=== PATIENT | female | born 1965 | race Caucasian/White ===

== ENCOUNTER → 2020-05-10 12:44 | Outpatient (CLI) | payer OTHER, SELFPAY ==
[2020-05-10] MEDS: COVID-19 VACC #1, MRNA(MOD) 100 MCG/0.5 ML VIAL IM (12:49)
== END ==
PROVIDERS: Visit Provider Internal Medicine
DX: Z23 Encounter for immunization (principal)
CPT/HCPCS: 0011A; 91301

== ENCOUNTER → 2020-06-10 11:57 | Outpatient (CLI) | payer OTHER, SELFPAY ==
[2020-06-10] MEDS: COVID-19 VACC #2, MRNA(MOD) 100 MCG/0.5 ML VIAL IM (12:02)
== END ==
PROVIDERS: Visit Provider Internal Medicine
DX: Z23 Encounter for immunization (principal)
CPT/HCPCS: 0012A; 91301

== ENCOUNTER → 2020-09-29 08:11 | Outpatient (CLI) | payer OTHER, SELFPAY ==
[2020-09-29 09:05] LABS: Hematocrit 38.9 % (36-46); Hemoglobin 13.1 g/dL (12.0-16.0); Mean Corpuscular HGB Conc 33.6 % (30-36); Mean Corpuscular Hemoglobin 30.7 PG (26-34); Mean Corpuscular Volume 91.3 fL (80-100); Platelet Count 259 X10^3/uL (150-400); Red Blood Cell Count 4.26 X10^6/uL (4.0-5.2); Red Cell Distribution Width 13.3 % (11.6-14.8); White Blood Cell Count 5.3 X10^3/uL (4.5-11.0)
[2020-09-29 09:23] LABS: Alanine Aminotransferase 18 IU/L (<35); Albumin 4.2 g/dL (3.5-5.0); Albumin Globulin Ratio 1.4 (1.0-2.8); Alkaline Phosphatase 47 U/L (38-126); Aspartate Aminotransferase 23 IU/L (14-36); BUN Creatinine Ratio 25.8 (6-22); Bilirubin Total 0.3 mg/dL (0.2-1.3); Blood Urea Nitrogen 17 mg/dL (7-17); Calcium 9.7 mg/dL (8.4-10.2); Carbon Dioxide 28 mmol/L (22-32); Chloride 104 mmol/L (98-107); Cholesterol 251 mg/dL (140-199); Estimated Glomerular Filt Rate > 60.0 mL/min (>60); Glucose 95 mg/dL (70-100); HDL Cholesterol 51 mg/dL (40-60); HEMOLYSIS 18 (0-50); LDL Cholesterol Calculated 145 mg/dL (<100); Sodium 139 mmol/L (137-145); Total Protein 7.2 g/dL (6.3-8.2); Triglycerides 276 mg/dL (35-150)
[2020-09-29 09:51] LABS: TSH w/ Reflex to FT4 2.26 uIU/mL (0.47-4.68)
== END ==
PROVIDERS: PCP Nurse Practitioner Family; Referring Provider Nurse Practitioner Family; Visit Provider Nurse Practitioner Family
DX: Z00.00 Encounter for general adult medical examination without abnormal findings (principal); Z13.6 Encounter for screening for cardiovascular disorders; F32.9 Major depressive disorder, single episode, unspecified
CPT/HCPCS: 36415; 80053; 80061; 84443; 85027

== ENCOUNTER → 2020-10-12 08:54 | Outpatient (CLI) | payer OTHER, SELFPAY ==
--- NOTE | 2020-10-12 08:55 | DI.US.S_ITS ---
LIMITED ULTRASOUND OF RIGHT BREAST: 10/12/2020 CLINICAL: Right breast intermittant rash. Abnormal mammo LOQ. Comparison is made to exams dated: 10/12/2020 mammogram - [facility], 12/23/2019 mammogram, 04/30/2018 mammogram, and 10/05/2016 mammogram - outside location. Real-time ultrasound of the right breast 1 o'clock and 6-8 o'clock regions was performed in the areas of interest. No discrete cystic or solid mass lesion identified in the area of skin abnormality. No discrete cystic or solid mass lesion identified in the area of mammographic findings. IMPRESSION: NEGATIVE There is no sonographic evidence of malignancy. There is no abnormality seen in the right breast to correspond with the skin abnormality at 1 o'clock, however, clinical followup is recommended. There is no abnormality seen in the right breast to correspond with the mammography findings in the lower outer quadrant. Findings are compatible with fibroglandular tissue. A 1 year screening mammogram is recommended. This exam was interpreted at Station ID: [id number]. Electronically Signed By: Earnest eduardo/:10/12/2020 10:04:42 letter sent: Clinical Evaluation Ultrasound BI-RADS: 1 Negative
--- NOTE | 2020-10-12 08:55 | DI.MG.S_ITS ---
BILATERAL DIGITAL DIAGNOSTIC MAMMOGRAM 3D/2D: 10/12/2020 CLINICAL: Right breast rash. Comparison is made to exams dated: 12/23/2019 mammogram, 04/30/2018 mammogram, and 10/05/2016 mammogram - outside location. The tissue of both breasts is heterogeneously dense. This may lower the sensitivity of mammography. There is an irregular equal density global asymmetry with an indistinct margin in the right breast at 6 o'clock anterior depth. No other significant masses, calcifications, or other findings are seen in either breast. IMPRESSION: INCOMPLETE: NEEDS ADDITIONAL IMAGING EVALUATION The irregular equal density global asymmetry in the right breast likely represents fibroglandular tissue and is indeterminate. An ultrasound is recommended. There is no abnormality seen in the right breast to correspond with the skin lesion at 12 o'clock, however, ultrasound is recommended. Ultrasound will be performed immediately following the current exam. This exam was interpreted at Station ID: [id number]. NOTE: For mammograms, a report in lay terms will be sent to the patient. Approximately 15% of breast malignancies will not be visualized mammographically. In the management of a palpable breast mass, a negative mammogram must not discourage biopsy of a clinically suspicious lesion. Electronically Signed By: Earnest Erickson M.D. ddp/:10/12/2020 09:43:11 ACR BI-RADS Category 0: Incomplete [id number]
== END ==
PROVIDERS: PCP Nurse Practitioner Family; Referring Provider Nurse Practitioner Family; Visit Provider Nurse Practitioner Family
DX: R21 Rash and other nonspecific skin eruption (principal); N64.89 Other specified disorders of breast; R92.8 Other abnormal and inconclusive findings on diagnostic imaging of breast
CPT/HCPCS: 76642; 77066; G0279

== ENCOUNTER 2020-10-26 08:15 | Outpatient (RCR) | payer OTHER, SELFPAY ==
--- NOTE | 2020-08-10 10:40 | PT.OIE ---
Current Diagnoses Pain in right shoulder (08/10/20) Impingement syndrome of right shoulder (08/10/20) Past Medical History (Last Updated 07/18/20 @ 14:03 by Candida Mercer PA-C) Right shoulder pain Visit Care Team Role Provider Type Wilber Rodrigues MD Attending Provider Physician Referring Provider Specialty: Orthopedic Surgery Address: [address] [place] [address], [id number] Email: [email or web address] [facility] Initial Evaluation PT-OP-A Visit Information Start: 08/10/20 08:06 Freq: Status: Active Protocol: Document 08/10/20 10:00 HH (Rec: 08/10/20 10:40 [email or web address]) Out-Patient Physical Therapy Visit Information Visit Information Visit Type Initial Evaluation Visit Start Time 08:15 Visit Stop Time 09:05 Total Visit Minutes 50 Visit Number 1 Number of OFFICE BOOKKEEPER Visits 0 Evaluation Information Evaluation Date 08/10/20 Precautions Precautions NA PT-OP-B Current Condition Start: 08/10/20 08:06 Freq: Status: Active Protocol: Document 08/10/20 10:00 HH (Rec: 08/10/20 10:40 [email or web address]) Current Condition History of Current Condition Onset Date Februra Current Complaints R shoulder pain, R neck pain History of Current Condition Lin is a 54 yo healthy female (L hand dominant) here for her new onset of R shoulder pain and chronic R neck pain since [facility] and five years ago. Symptoms started in [facility] after she moved from [place] to [place]. She denies any known injury but pain started as nagging discomfort but it has been getting worse. She also started having tingling and numbness down to her R pinky and her pain worse with any shoulder movements especially abduction. She has difficulty opening a jar, holding a coffee and sleeping on her R side. Pt consulted orthopedist Dr. Rodrigues and he believes pt has bursitis vs RTC tendinitis vs adhesive capsulitis. Current Functional Impairments (Reported) Functional Limitations- ADL's pain with opening jar/ holding a weighted object pain with donning her bra Functional Limitations- Recreation/ unable to kayak, play golf d/t Hobbies pain PT-OP-C Subjective Start: 08/10/20 08:06 Freq: Status: Active Protocol: Document 08/10/20 10:00 HH (Rec: 08/10/20 10:40 [email or web address]) Patient Questionnaires Quick Dash- Upper Extremity Quick Dash UE Score 84 Quick Dash UE Impairment 80 to 99% Impaired (Score 80- 99) OP-PT Pain Assessment Location R shoulder Intensity 6 Scale Used Numeric (0 - 10) Description Aching Frequency Constant Pain Aggravating Factors Position,ADL's,Activity, Exercise,Lifting Pain Alleviating Factors Cold,Inactivity PT-OP-E Functional Tests Start: 08/10/20 08:06 Freq: Status: Active Protocol: Document 08/10/20 10:00 HH (Rec: 08/10/20 10:40 [email or web address]) Functional Tests Apley's Scratch Test Action 1- Left no pain Action 1- Right no pain Action 2- Left T2 Action 2- Right T2 with pain Action 3- Left T10 Action 3- Right T12 with pain PT-OP-F Manual Assessment Start: 08/10/20 08:06 Freq: Status: Active Protocol: Document 08/10/20 10:00 HH (Rec: 08/10/20 10:40 [email or web address]) Manual Assessments Soft Tissue Assessment Soft Tissue Mobility Assessment significant hypertonicity at proximal bicep and long head tendon tenderness to pressure at supraspinatus and infraspinatus hypertonicity at R subocciputal muscle group PT-OP-K Range of Motion Start: 08/10/20 08:06 Freq: Status: Active Protocol: Document 08/10/20 10:00 HH (Rec: 08/10/20 10:40 [email or web address]) Cervical Spine Range of Motion Cervical Spine Active Degrees Testing Position Sitting Rotation Left 85 Rotation Right 65 Comments pain with end range extension at T2-T4 pain with end range R rotation Shoulder Goniometric Range of Motion Shoulder Right Active Shoulder ROM WFL Yes Testing Position Standing Flexion 150 Abduction 105 External Rotation at 90 degrees 80 Abduction Internal Rotation 85 Left Active Shoulder ROM WFL Yes Testing Position Standing Flexion 150 Abduction 140 External Rotation at 90 degrees 95 Abduction Internal Rotation 85 PT-OP-L Special Tests Start: 08/10/20 08:06 Freq: Status: Active Protocol: Document 08/10/20 10:00 HH (Rec: 08/10/20 10:40 [email or web address]) Special Tests Shoulder Special Tests painful arc Test Results +ve R Comments abduction at 80 degrees Lift-Off Rotator Cuff Test Results +ve R Comments pain and weakness Empty Can Test Results -ve B External Rotation Lag Sign Test Results -ve B Comments no increase passive ER at R Drop Arm Rotator Cuff Test Results -ve B Comments pain to abduct AC Joint Compression Test Results -ve B Belly Press Test Results -ve B PT-OP-M Strength Start: 08/10/20 08:06 Freq: Status: Active Protocol: Document 08/10/20 10:00 HH (Rec: 08/10/20 10:40 [email or web address]) Shoulder Strength Shoulder Manual Muscle Testing Right Flexion 4 Good Extension 4 Good Abduction (C5) 3+ Fair+ Adduction 4+ Good+ External Rotation 4+ Good+ Internal Rotation 4+ Good+ Left Flexion 5 Normal Extension 5 Normal Abduction (C5) 5 Normal Adduction 5 Normal External Rotation 5 Normal Internal Rotation 5 Normal PT-OP-Q Treatments Start: 08/10/20 08:06 Freq: Status: Active Protocol: Document 08/10/20 10:00 (Rec: 08/10/20 10:40 [email or web address]) Therapeutic Exercises Standing Exercises tennis ball release Standing Exercise Name at RTC region Side right Comments for [facility] Manual Therapy Treatment Soft Tissue Mobilization RTC Body Location infraspinatus Mobilization Type Sustained Pressure,Trigger Point Release Intensity/Depth Moderate Body Position Supine bicep Body Location R bicep and long head tendon Mobilization Type Sustained Pressure,Trigger Point Release Intensity/Depth Moderate Body Position Supine Comments pain noted from proximal bicep to long head tendon Joint Mobilizations R GHJ Direction post glide Grade III Body Position Supine Comments pain relief noted./ Nerve Glides ulnar nerve glide Nerve ulnar Body Position Sitting Comments for [facility] PT-OP-T Assessment and Plan Start: 08/10/20 08:06 Freq: Status: Active Protocol: Document 08/10/20 10:00 HH (Rec: 08/10/20 10:40 [email or web address]) Physical Therapy Assessment Rehab Potential Rehabilitation Potential Excellent Evaluation Complexity Number of Personal Factors/Comorbidities 0 Number of Body Systems Impaired 1-2 Clinical Presentation at Evaluation Stable Impairments Impairments Activity Tolerance,Balance, Functional Activities, Functional Mobility,Gait,Pain, Posture,ROM,Soft Tissue Mobility,Strength,Tone, Transfers Goals Neck pain and headache Impairment pt has constant tension headache and neck pain Short Term Goal (STG) pt will have tension headahce on R side no more than 4 times a week to improve her overall focus and attention STG Duration 4 weeks Skilled Nursing Goal (LTG) pt will have tension headahce on R side no more than 2 times a week to improve her overall work productivity and focus. LTG Duration 8 weeks return to activities Academic Affairs Manager Goal (LTG) pt will be able to participate kayaking, playing golf and other activitiies involves shoulder movements without difficulty LTG Duration 8 weeks ROM Impairment limited R shoulder ROM Short Term Goal (STG) pt will regain her R shoulder full AROM with pain no more than 2/10 STG Duration 4 weeks Skilled Nursing Goal (LTG) pt will have full R shoulder ROM without pain and neurological signs on her ulnar nerve. LTG Duration 8 weeks quickdash Impairment pt scores 84 on quickdash Short Term Goal (STG) Pt will improve overall her R shoulder mobility and strength to score <50 on quickdash STG Duration 4 weeks Skilled Nursing Goal (LTG) Pt will improve overall her R shoulder mobility and strength to score <30 on quickdash, therefore, she can perform daily tasks like opening jars, holding weighted object without difficulty. LTG Duration 8 weeks Assessment Summary Assessment Lin is a 54 yo L hand dominant healthy female here for her R shoulder pain and chronic R neck pain. 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 She also has tension headahce which is triggered by her hypertonic suboccipital muscle group and R SCM, along with limited R cervical rotation and extension. Her shoulder AROM did improve immediately after manual therapy and so did her pain. Pt will benefit from skilled therapy to improve her cervical and R shoulder ROM and strength by manual therapy , cervical and shoulder stabilization and overall strengthening. This will allows her to fully return to her ADL and sports without difficulty. Physical Therapy Plan Frequency and Duration Frequency of Treatment 2x/Week Duration of Treatment 8 weeks Plan of Care Start Date 08/09/20 Plan of Care End Date 10/09/20 Therapeutic Interventions Therapeutic Interventions Home Exercise Program,Joint Mobilizations,Manual Therapy, Neuromuscular Re-education, Patient/Caregiver Education, Self-Care/Home Management,Soft Tissue Mobilization,Taping, Therapeutic Activities, Therapeutic Exercises Modalities Biofeedback,Cold Pack/Ice Massage,Electric Stimulation, Hot Packs,Infrared Therapy, Iontophoresis,Paraffin Bath, Traction- Mechanical, Ultrasound Next Visit Focus/Plan Next Note Type Treatment Note Next Visit Plan manual @ bicep tendon, RTC followed by ROM ex manula @ suboccipitals, SCM followed by stretching at levator scap and R trap check scapula movements.
--- NOTE | 2020-08-10 10:41 | PT.OPPOC ---
Physical, Occupational & Speech Therapy At [facility] Current Diagnoses Pain in right shoulder (08/10/20) Impingement syndrome of right shoulder (08/10/20) Visit Care Team Role Provider Type Wilber Rodrigues MD Attending Provider Physician Referring Provider Specialty: Orthopedic Surgery Address: [address] [place] [address], [id number] Email: [email or web address] Plan Of Care PT-OP-T Assessment and Plan Start: 08/10/20 08:06 Freq: Status: Active Protocol: Document 08/10/20 10:00 (Rec: 08/10/20 10:40 [email or web address]) Physical Therapy Assessment Rehab Potential Rehabilitation Potential Excellent Evaluation Complexity Number of Personal Factors/Comorbidities 0 Number of Body Systems Impaired 1-2 Clinical Presentation at Evaluation Stable Impairments Impairments Activity Tolerance,Balance, Functional Activities, Functional Mobility,Gait,Pain, Posture,ROM,Soft Tissue Mobility,Strength,Tone, Transfers Goals Neck pain and headache Impairment pt has constant tension headache and neck pain Short Term Goal (STG) pt will have tension headahce on R side no more than 4 times a week to improve her overall focus and attention STG Duration 4 weeks Senior Accountant Analyst Goal (LTG) pt will have tension headahce on R side no more than 2 times a week to improve her overall work productivity and focus. LTG Duration 8 weeks return to activities Fdc Goal (LTG) pt will be able to participate kayaking, playing golf and other activitiies involves shoulder movements without difficulty LTG Duration 8 weeks ROM Impairment limited R shoulder ROM Short Term Goal (STG) pt will regain her R shoulder full AROM with pain no more than 2/10 STG Duration 4 weeks Fdc Goal (LTG) pt will have full R shoulder ROM without pain and neurological signs on her ulnar nerve. LTG Duration 8 weeks quickdash Impairment pt scores 84 on quickdash Short Term Goal (STG) Pt will improve overall her R shoulder mobility and strength to score <50 on quickdash STG Duration 4 weeks Fdc Goal (LTG) Pt will improve overall her R shoulder mobility and strength to score <30 on quickdash, therefore, she can perform daily tasks like opening jars, holding weighted object without difficulty. LTG Duration 8 weeks Assessment Summary Assessment Lin is a 54 yo L hand dominant healthy female here for her R shoulder pain and chronic R neck pain. Upon assessment, pt presents long head of bicep tendonitis and RTC tedonitis, along with decreased ulnar nerve flexbility which primarily limits her R shoulder movement and strength. She also has tension headahce which is triggered by her hypertonic suboccipital muscle group and R SCM, along with limited R cervical rotation and extension. Her shoulder AROM did improve immediately after manual therapy and so did her pain. Pt will benefit from skilled therapy to improve her cervical and R shoulder ROM and strength by manual therapy , cervical and shoulder stabilization and overall strengthening. This will allows her to fully return to her ADL and sports without difficulty. Physical Therapy Plan Frequency and Duration Frequency of Treatment 2x/Week Duration of Treatment 8 weeks Plan of Care Start Date 08/09/20 Plan of Care End Date 10/09/20 Therapeutic Interventions Therapeutic Interventions Home Exercise Program,Joint Mobilizations,Manual Therapy, Neuromuscular Re-education, Patient/Caregiver Education, Self-Care/Home Management,Soft Tissue Mobilization,Taping, Therapeutic Activities, Therapeutic Exercises Modalities Biofeedback,Cold Pack/Ice Massage,Electric Stimulation, Hot Packs,Infrared Therapy, Iontophoresis,Paraffin Bath, Traction- Mechanical, Ultrasound Next Visit Focus/Plan Next Note Type Treatment Note Next Visit Plan manual @ bicep tendon, RTC followed by ROM ex manula @ suboccipitals, SCM followed by stretching at levator scap and R trap check scapula movements. Plan of Care Dates Plan of Care Start Date 08/09/20 Plan of Care End Date 10/09/20 Electronically Signed by: Otis Shaver PT 08/10/20 1043 Please Sign and Return: I have reviewed this Plan of Care and certify that the skilled therapy services above are required to meet the patient?s needs. Physician Signature Date Printed Name and Credentials Clinical Instructor Signature Printed Name and Credentials
--- NOTE | 2020-08-15 09:05 | PT.OTN ---
Current Diagnoses Pain in right shoulder (08/15/20) Impingement syndrome of right shoulder (08/15/20) Physical Therapy Treatment Note PT-OP-A Visit Information Start: 08/10/20 08:06 Freq: Status: Active Protocol: Document 08/15/20 08:13 HH (Rec: 08/15/20 09:04 [id number]) Out-Patient Physical Therapy Visit Information Visit Information Visit Type Treatment Note Visit Start Time 08:17 Visit Stop Time 09:05 Total Visit Minutes 43 Visit Number 2 Number of BIG DATA SOFTWARE ENGINEER Visits 0 PT-OP-B Current Condition Start: 08/10/20 08:06 Freq: Status: Active Protocol: Document 08/10/20 10:00 HH (Rec: 08/10/20 10:40 [email or web address]) Current Condition History of Current Condition Onset Date Februra Current Complaints R shoulder pain, R neck pain History of Current Condition Lin is a 54 yo healthy female (L hand dominant) here for her new onset of R shoulder pain and chronic R neck pain since [facility] and five years ago. Symptoms started in [facility] after she moved from [place] to [place]. She denies any known injury but pain started as nagging discomfort but it has been getting worse. She also started having tingling and numbness down to her R pinky and her pain worse with any shoulder movements especially abduction. She has difficulty opening a jar, holding a coffee and sleeping on her R side. Pt consulted orthopedist Dr. Rodrigues and he believes pt has bursitis vs RTC tendinitis vs adhesive capsulitis. Current Functional Impairments (Reported) Functional Limitations- ADL's pain with opening jar/ holding a weighted object pain with donning her bra Functional Limitations- Recreation/ unable to kayak, play golf d/t Hobbies pain PT-OP-C Subjective Start: 08/10/20 08:06 Freq: Status: Active Protocol: Document 08/15/20 08:13 HH (Rec: 08/15/20 09:04 [id number]) OP-PT Subjective Patient Comments Patient Comments I felt really good after last session but it lasted a day only. My tingling sensation in picky seems to be better: Patient Reported Progress Improving PT-OP-E Functional Tests Start: 08/10/20 08:06 Freq: Status: Active Protocol: Document 08/10/20 10:00 HH (Rec: 08/10/20 10:40 [email or web address]) Functional Tests Apley's Scratch Test Action 1- Left no pain Action 1- Right no pain Action 2- Left T2 Action 2- Right T2 with pain Action 3- Left T10 Action 3- Right T12 with pain PT-OP-F Manual Assessment Start: 08/10/20 08:06 Freq: Status: Active Protocol: Document 08/10/20 10:00 HH (Rec: 08/10/20 10:40 [email or web address]) Manual Assessments Soft Tissue Assessment Soft Tissue Mobility Assessment significant hypertonicity at proximal bicep and long head tendon tenderness to pressure at supraspinatus and infraspinatus hypertonicity at R subocciputal muscle group PT-OP-K Range of Motion Start: 08/10/20 08:06 Freq: Status: Active Protocol: Document 08/10/20 10:00 HH (Rec: 08/10/20 10:40 [email or web address]) Cervical Spine Range of Motion Cervical Spine Active Degrees Testing Position Sitting Rotation Left 85 Rotation Right 65 Comments pain with end range extension at T2-T4 pain with end range R rotation Shoulder Goniometric Range of Motion Shoulder Right Active Shoulder ROM WFL Yes Testing Position Standing Flexion 150 Abduction 105 External Rotation at 90 degrees 80 Abduction Internal Rotation 85 Left Active Shoulder ROM WFL Yes Testing Position Standing Flexion 150 Abduction 140 External Rotation at 90 degrees 95 Abduction Internal Rotation 85 PT-OP-L Special Tests Start: 08/10/20 08:06 Freq: Status: Active Protocol: Document 08/10/20 10:00 HH (Rec: 08/10/20 10:40 [email or web address]) Special Tests Shoulder Special Tests painful arc Test Results +ve R Comments abduction at 80 degrees Lift-Off Rotator Cuff Test Results +ve R Comments pain and weakness Empty Can Test Results -ve B External Rotation Lag Sign Test Results -ve B Comments no increase passive ER at R Drop Arm Rotator Cuff Test Results -ve B Comments pain to abduct AC Joint Compression Test Results -ve B Belly Press Test Results -ve B PT-OP-M Strength Start: 08/10/20 08:06 Freq: Status: Active Protocol: Document 08/10/20 10:00 HH (Rec: 08/10/20 10:40 [email or web address]) Shoulder Strength Shoulder Manual Muscle Testing Right Flexion 4 Good Extension 4 Good Abduction (C5) 3+ Fair+ Adduction 4+ Good+ External Rotation 4+ Good+ Internal Rotation 4+ Good+ Left Flexion 5 Normal Extension 5 Normal Abduction (C5) 5 Normal Adduction 5 Normal External Rotation 5 Normal Internal Rotation 5 Normal PT-OP-Q Treatments Start: 08/10/20 08:06 Freq: Status: Active Protocol: Document 08/15/20 08:13 (Rec: 08/15/20 09:04 [id number]) Therapeutic Exercises Supine Exercises tennis ball release Supine Exercise Name on suboccipitals Side bilateral Comments for HEP Sidelying Exercises open book Side bilateral Comments for HEP, stretching sensation at bicep, slight pain noted Sitting Exercises levator stretch Comments for HEP Standing Exercises shoulder ER Side right Equipment Used red band Reps/Minutes 8 x2 Comments not ready d/t pain. Manual Therapy Treatment Soft Tissue Mobilization suboccipitals Mobilization Type Sustained Pressure,Trigger Point Release Intensity/Depth Moderate Body Position Supine Comments + levator scap pecs Mobilization Type Sustained Pressure,Trigger Point Release Intensity/Depth Moderate Body Position Supine RTC Body Location infraspinatus Mobilization Type Sustained Pressure,Trigger Point Release Intensity/Depth Moderate Body Position Supine Comments improved tonicity noted. bicep Body Location R bicep and long head tendon Mobilization Type Sustained Pressure,Trigger Point Release Intensity/Depth Moderate Body Position Supine Comments pain noted from proximal bicep to long head tendon Joint Mobilizations R GHJ Direction post glide Grade III Body Position Supine Comments with passisve ER and IR. pain relief noted. Nerve Glides ulnar nerve glide Nerve ulnar Body Position Sitting Comments for HEP PT-OP-T Assessment and Plan Start: 08/10/20 08:06 Freq: Status: Active Protocol: Document 08/15/20 08:13 (Rec: 08/15/20 09:04 [id number]) Physical Therapy Assessment Goals Neck pain and headache Impairment pt has constant tension headache and neck pain Short Term Goal (STG) pt will have tension headahce on R side no more than 4 times a week to improve her overall focus and attention STG Duration 4 weeks Step Finisher Goal (LTG) pt will have tension headahce on R side no more than 2 times a week to improve her overall work productivity and focus. LTG Duration 8 weeks return to activities Nursing Home Goal (LTG) pt will be able to participate kayaking, playing golf and other activitiies involves shoulder movements without difficulty LTG Duration 8 weeks ROM Impairment limited R shoulder ROM Short Term Goal (STG) pt will regain her R shoulder full AROM with pain no more than 2/10 STG Duration 4 weeks Step Finisher Goal (LTG) pt will have full R shoulder ROM without pain and neurological signs on her ulnar nerve. LTG Duration 8 weeks quickdash Impairment pt scores 84 on quickdash Short Term Goal (STG) Pt will improve overall her R shoulder mobility and strength to score <50 on quickdash STG Duration 4 weeks Step Finisher Goal (LTG) Pt will improve overall her R shoulder mobility and strength to score <30 on quickdash, therefore, she can perform daily tasks like opening jars, holding weighted object without difficulty. LTG Duration 8 weeks Assessment Summary Assessment Pt has significant tonicity at R pecs and biceps but improved after STM. Added open book, tennis ball release at suboccipital and levator stretch. Pt is not ready for RTC strengthening exercises d/ t significant pain. Physical Therapy Plan Frequency and Duration Frequency of Treatment 2x/Week Duration of Treatment 8 weeks Plan of Care Start Date 08/09/20 Plan of Care End Date 10/09/20 Therapeutic Interventions Therapeutic Interventions Home Exercise Program,Joint Mobilizations,Manual Therapy, Neuromuscular Re-education, Patient/Caregiver Education, Self-Care/Home Management,Soft Tissue Mobilization,Taping, Therapeutic Activities, Therapeutic Exercises Modalities Biofeedback,Cold Pack/Ice Massage,Electric Stimulation, Hot Packs,Infrared Therapy, Iontophoresis,Paraffin Bath, Traction- Mechanical, Ultrasound Next Visit Focus/Plan Next Note Type Treatment Note Next Visit Plan manual @ bicep tendon, RTC followed by ROM ex manula @ suboccipitals, SCM followed by stretching at levator scap and R trap check scapula movements.
--- NOTE | 2020-08-17 09:07 | PT.OTN ---
Current Diagnoses Pain in right shoulder (08/17/20) Impingement syndrome of right shoulder (08/17/20) Physical Therapy Treatment Note PT-OP-A Visit Information Start: 08/10/20 08:06 Freq: Status: Active Protocol: Document 08/17/20 08:13 HH (Rec: 08/17/20 09:07 [id number]) Out-Patient Physical Therapy Visit Information Visit Information Visit Type Treatment Note Visit Start Time 08:15 Visit Stop Time 09:00 Total Visit Minutes 45 Visit Number 3 Number of CLUTCH REBUILDER Visits 0 PT-OP-B Current Condition Start: 08/10/20 08:06 Freq: Status: Active Protocol: Document 08/10/20 10:00 HH (Rec: 08/10/20 10:40 [email or web address]) Current Condition History of Current Condition Onset Date Februray Current Complaints R shoulder pain, R neck pain History of Current Condition Lin is a 54 yo healthy female (L hand dominant) here for her new onset of R shoulder pain and chronic R neck pain since [facility] and five years ago. Symptoms started in [facility] after she moved from [place] to [place]. She denies any known injury but pain started as nagging discomfort but it has been getting worse. She also started having tingling and numbness down to her R pinky and her pain worse with any shoulder movements especially abduction. She has difficulty opening a jar, holding a coffee and sleeping on her R side. Pt consulted orthopedist Dr. Rodrigues and he believes pt has bursitis vs RTC tendinitis vs adhesive capsulitis. Current Functional Impairments (Reported) Functional Limitations- ADL's pain with opening jar/ holding a weighted object pain with donning her bra Functional Limitations- Recreation/ unable to kayak, play golf d/t Hobbies pain PT-OP-C Subjective Start: 08/10/20 08:06 Freq: Status: Active Protocol: Document 08/17/20 08:13 HH (Rec: 08/17/20 09:07 [id number]) OP-PT Subjective Patient Comments Patient Comments My shoulder feels good and able to move more. However, i did get a headache last night after i did the neck stretch Patient Reported Progress Improving PT-OP-E Functional Tests Start: 08/10/20 08:06 Freq: Status: Active Protocol: Document 08/10/20 10:00 HH (Rec: 08/10/20 10:40 [email or web address]) Functional Tests Apley's Scratch Test Action 1- Left no pain Action 1- Right no pain Action 2- Left T2 Action 2- Right T2 with pain Action 3- Left T10 Action 3- Right T12 with pain PT-OP-F Manual Assessment Start: 08/10/20 08:06 Freq: Status: Active Protocol: Document 08/10/20 10:00 HH (Rec: 08/10/20 10:40 [email or web address]) Manual Assessments Soft Tissue Assessment Soft Tissue Mobility Assessment significant hypertonicity at proximal bicep and long head tendon tenderness to pressure at supraspinatus and infraspinatus hypertonicity at R subocciputal muscle group PT-OP-K Range of Motion Start: 08/10/20 08:06 Freq: Status: Active Protocol: Document 08/10/20 10:00 HH (Rec: 08/10/20 10:40 [email or web address]) Cervical Spine Range of Motion Cervical Spine Active Degrees Testing Position Sitting Rotation Left 85 Rotation Right 65 Comments pain with end range extension at T2-T4 pain with end range R rotation Shoulder Goniometric Range of Motion Shoulder Right Active Shoulder ROM WFL Yes Testing Position Standing Flexion 150 Abduction 105 External Rotation at 90 degrees 80 Abduction Internal Rotation 85 Left Active Shoulder ROM WFL Yes Testing Position Standing Flexion 150 Abduction 140 External Rotation at 90 degrees 95 Abduction Internal Rotation 85 PT-OP-L Special Tests Start: 08/10/20 08:06 Freq: Status: Active Protocol: Document 08/10/20 10:00 HH (Rec: 08/10/20 10:40 [email or web address]) Special Tests Shoulder Special Tests painful arc Test Results +ve R Comments abduction at 80 degrees Lift-Off Rotator Cuff Test Results +ve R Comments pain and weakness Empty Can Test Results -ve B External Rotation Lag Sign Test Results -ve B Comments no increase passive ER at R Drop Arm Rotator Cuff Test Results -ve B Comments pain to abduct AC Joint Compression Test Results -ve B Belly Press Test Results -ve B PT-OP-M Strength Start: 08/10/20 08:06 Freq: Status: Active Protocol: Document 08/10/20 10:00 HH (Rec: 08/10/20 10:40 [email or web address]) Shoulder Strength Shoulder Manual Muscle Testing Right Flexion 4 Good Extension 4 Good Abduction (C5) 3+ Fair+ Adduction 4+ Good+ External Rotation 4+ Good+ Internal Rotation 4+ Good+ Left Flexion 5 Normal Extension 5 Normal Abduction (C5) 5 Normal Adduction 5 Normal External Rotation 5 Normal Internal Rotation 5 Normal PT-OP-Q Treatments Start: 08/10/20 08:06 Freq: Status: Active Protocol: Document 08/17/20 08:13 (Rec: 08/17/20 09:07 [id number]) Cardio Equipment Upper Body Ergometer (UBE) Duration (Minutes) 4 RPM 60 Other 30 sec and change direction Therapeutic Exercises Sidelying Exercises shoulder ER Side bilateral Reps/Minutes 8 x 2 Comments slight discomfort at top of shoulder open book Side bilateral Reps/Minutes 8 x2 Sitting Exercises levator stretch Comments for HEP Standing Exercises OH giorgio Standing Exercise Name flexion and abduction Side bilateral Reps/Minutes 2 mins each direction scap retraction Side bilateral Reps/Minutes 8 x 2 Comments cues on retraction Manual Therapy Treatment Soft Tissue Mobilization suboccipitals Mobilization Type Sustained Pressure,Trigger Point Release Intensity/Depth Moderate Body Position Supine Comments + levator scap pecs Mobilization Type Sustained Pressure,Trigger Point Release Intensity/Depth Moderate Body Position Supine RTC Body Location infraspinatus Mobilization Type Sustained Pressure,Trigger Point Release Intensity/Depth Moderate Body Position Supine Comments improved tonicity noted. bicep Body Location R bicep and long head tendon Mobilization Type Sustained Pressure,Trigger Point Release Intensity/Depth Moderate Body Position Supine Comments pain noted from proximal bicep to long head tendon Joint Mobilizations R GHJ Direction post glide Grade III Body Position Supine Comments with passisve ER and IR. pain relief noted. Nerve Glides ulnar nerve glide Nerve ulnar Body Position Sitting Comments for HEP PT-OP-T Assessment and Plan Start: 08/10/20 08:06 Freq: Status: Active Protocol: Document 08/17/20 08:13 (Rec: 08/17/20 09:07 [id number]) Physical Therapy Assessment Goals Neck pain and headache Impairment pt has constant tension headache and neck pain Short Term Goal (STG) pt will have tension headahce on R side no more than 4 times a week to improve her overall focus and attention STG Duration 4 weeks [employer] Goal (LTG) pt will have tension headahce on R side no more than 2 times a week to improve her overall work productivity and focus. LTG Duration 8 weeks return to activities [employer] Goal (LTG) pt will be able to participate kayaking, playing golf and other activitiies involves shoulder movements without difficulty LTG Duration 8 weeks ROM Impairment limited R shoulder ROM Short Term Goal (STG) pt will regain her R shoulder full AROM with pain no more than 2/10 STG Duration 4 weeks [employer] Goal (LTG) pt will have full R shoulder ROM without pain and neurological signs on her ulnar nerve. LTG Duration 8 weeks quickdash Impairment pt scores 84 on quickdash Short Term Goal (STG) Pt will improve overall her R shoulder mobility and strength to score <50 on quickdash STG Duration 4 weeks [facility] Goal (LTG) Pt will improve overall her R shoulder mobility and strength to score <30 on quickdash, therefore, she can perform daily tasks like opening jars, holding weighted object without difficulty. LTG Duration 8 weeks Assessment Summary Assessment Pt shows improved shoulder mobility with less pain. Added SL shoulder ER to HEP. Will assess her response next visit . Physical Therapy Plan Frequency and Duration Frequency of Treatment 2x/Week Duration of Treatment 8 weeks Plan of Care Start Date 08/09/20 Plan of Care End Date 10/09/20 Therapeutic Interventions Therapeutic Interventions Home Exercise Program,Joint Mobilizations,Manual Therapy, Neuromuscular Re-education, Patient/Caregiver Education, Self-Care/Home Management,Soft Tissue Mobilization,Taping, Therapeutic Activities, Therapeutic Exercises Modalities Biofeedback,Cold Pack/Ice Massage,Electric Stimulation, Hot Packs,Infrared Therapy, Iontophoresis,Paraffin Bath, Traction- Mechanical, Ultrasound Next Visit Focus/Plan Next Note Type Treatment Note Next Visit Plan manual @ bicep tendon, RTC followed by ROM ex manula @ suboccipitals, SCM followed by stretching at levator scap and R trap check scapula movements.
--- NOTE | 2020-08-24 09:43 | PT.OTN ---
Current Diagnoses Pain in right shoulder (08/24/20) Impingement syndrome of right shoulder (08/24/20) Physical Therapy Treatment Note PT-OP-A Visit Information Start: 08/10/20 08:06 Freq: Status: Active Protocol: Document 08/24/20 08:13 HH (Rec: 08/24/20 09:00 [id number]) Out-Patient Physical Therapy Visit Information Visit Information Visit Type Treatment Note Visit Start Time 08:16 Visit Stop Time 09:00 Total Visit Minutes 44 Visit Number 4 Number of SUPERINTENDENT SYSTEM OPERATION Visits 0 PT-OP-B Current Condition Start: 08/10/20 08:06 Freq: Status: Active Protocol: Document 08/10/20 10:00 HH (Rec: 08/10/20 10:40 HH [email or web address]) Current Condition History of Current Condition Onset Date Februray Current Complaints R shoulder pain, R neck pain History of Current Condition Lin is a 54 yo healthy female (L hand dominant) here for her new onset of R shoulder pain and chronic R neck pain since [facility] and five years ago. Symptoms started in [facility] after she moved from [place] to [place]. She denies any known injury but pain started as nagging discomfort but it has been getting worse. She also started having tingling and numbness down to her R pinky and her pain worse with any shoulder movements especially abduction. She has difficulty opening a jar, holding a coffee and sleeping on her R side. Pt consulted orthopedist Dr. Rodrigues and he believes pt has bursitis vs RTC tendinitis vs adhesive capsulitis. Current Functional Impairments (Reported) Functional Limitations- ADL's pain with opening jar/ holding a weighted object pain with donning her bra Functional Limitations- Recreation/ unable to kayak, play golf d/t Hobbies pain PT-OP-C Subjective Start: 08/10/20 08:06 Freq: Status: Active Protocol: Document 08/24/20 08:13 HH (Rec: 08/24/20 09:00 [id number]) OP-PT Subjective Patient Comments Patient Comments My arm is doing very good so far. i didnt have the headache for the entire week so im very glad. I also dont have any tingling and numbness anymore. Patient Reported Progress Improving PT-OP-E Functional Tests Start: 08/10/20 08:06 Freq: Status: Active Protocol: Document 08/10/20 10:00 HH (Rec: 08/10/20 10:40 [email or web address]) Functional Tests Apley's Scratch Test Action 1- Left no pain Action 1- Right no pain Action 2- Left T2 Action 2- Right T2 with pain Action 3- Left T10 Action 3- Right T12 with pain PT-OP-F Manual Assessment Start: 08/10/20 08:06 Freq: Status: Active Protocol: Document 08/10/20 10:00 HH (Rec: 08/10/20 10:40 [email or web address]) Manual Assessments Soft Tissue Assessment Soft Tissue Mobility Assessment significant hypertonicity at proximal bicep and long head tendon tenderness to pressure at supraspinatus and infraspinatus hypertonicity at R subocciputal muscle group PT-OP-K Range of Motion Start: 08/10/20 08:06 Freq: Status: Active Protocol: Document 08/10/20 10:00 HH (Rec: 08/10/20 10:40 [email or web address]) Cervical Spine Range of Motion Cervical Spine Active Degrees Testing Position Sitting Rotation Left 85 Rotation Right 65 Comments pain with end range extension at T2-T4 pain with end range R rotation Shoulder Goniometric Range of Motion Shoulder Right Active Shoulder ROM WFL Yes Testing Position Standing Flexion 150 Abduction 105 External Rotation at 90 degrees 80 Abduction Internal Rotation 85 Left Active Shoulder ROM WFL Yes Testing Position Standing Flexion 150 Abduction 140 External Rotation at 90 degrees 95 Abduction Internal Rotation 85 PT-OP-L Special Tests Start: 08/10/20 08:06 Freq: Status: Active Protocol: Document 08/10/20 10:00 HH (Rec: 08/10/20 10:40 [email or web address]) Special Tests Shoulder Special Tests painful arc Test Results +ve R Comments abduction at 80 degrees Lift-Off Rotator Cuff Test Results +ve R Comments pain and weakness Empty Can Test Results -ve B External Rotation Lag Sign Test Results -ve B Comments no increase passive ER at R Drop Arm Rotator Cuff Test Results -ve B Comments pain to abduct AC Joint Compression Test Results -ve B Belly Press Test Results -ve B PT-OP-M Strength Start: 08/10/20 08:06 Freq: Status: Active Protocol: Document 08/10/20 10:00 HH (Rec: 08/10/20 10:40 [email or web address]) Shoulder Strength Shoulder Manual Muscle Testing Right Flexion 4 Good Extension 4 Good Abduction (C5) 3+ Fair+ Adduction 4+ Good+ External Rotation 4+ Good+ Internal Rotation 4+ Good+ Left Flexion 5 Normal Extension 5 Normal Abduction (C5) 5 Normal Adduction 5 Normal External Rotation 5 Normal Internal Rotation 5 Normal PT-OP-Q Treatments Start: 08/10/20 08:06 Freq: Status: Active Protocol: Document 08/24/20 08:13 (Rec: 08/24/20 09:00 [id number]) Cardio Equipment Upper Body Ergometer (UBE) Duration (Minutes) 4 RPM 60 Other 30 sec and change direction Therapeutic Exercises Sidelying Exercises horizontal abduction Equipment Used 1lb DB Reps/Minutes 8 reps x 2 shoulder ER Side bilateral Reps/Minutes 8 x 2 Comments cues on retracted shoulder open book Side bilateral Reps/Minutes 8 x2 Standing Exercises OH giorgio Standing Exercise Name flexion and abduction Side bilateral Reps/Minutes 2 mins each direction scap retraction Side bilateral Equipment Used level 1 band Reps/Minutes 8 x 2 Comments cues on retraction, for HEP Manual Therapy Treatment Soft Tissue Mobilization pecs Mobilization Type Sustained Pressure,Trigger Point Release Intensity/Depth Moderate Body Position Supine RTC Body Location infraspinatus Mobilization Type Sustained Pressure,Trigger Point Release Intensity/Depth Moderate Body Position Supine Comments improved tonicity noted. bicep Body Location R bicep and long head tendon Mobilization Type Sustained Pressure,Trigger Point Release Intensity/Depth Moderate Body Position Supine Comments pain noted from proximal bicep to long head tendon PT-OP-T Assessment and Plan Start: 08/10/20 08:06 Freq: Status: Active Protocol: Document 08/24/20 08:13 (Rec: 08/24/20 09:00 [id number]) Physical Therapy Assessment Goals Neck pain and headache Impairment pt has constant tension headache and neck pain Short Term Goal (STG) pt will have tension headahce on R side no more than 4 times a week to improve her overall focus and attention STG Duration 4 weeks [employer] Goal (LTG) pt will have tension headahce on R side no more than 2 times a week to improve her overall work productivity and focus. LTG Duration 8 weeks return to activities [facility] Goal (LTG) pt will be able to participate kayaking, playing golf and other activitiies involves shoulder movements without difficulty LTG Duration 8 weeks ROM Impairment limited R shoulder ROM Short Term Goal (STG) pt will regain her R shoulder full AROM with pain no more than 2/10 STG Duration 4 weeks [facility] Goal (LTG) pt will have full R shoulder ROM without pain and neurological signs on her ulnar nerve. LTG Duration 8 weeks quickdash Impairment pt scores 84 on quickdash Short Term Goal (STG) Pt will improve overall her R shoulder mobility and strength to score <50 on quickdash STG Duration 4 weeks [employer] Goal (LTG) Pt will improve overall her R shoulder mobility and strength to score <30 on quickdash, therefore, she can perform daily tasks like opening jars, holding weighted object without difficulty. LTG Duration 8 weeks Assessment Summary Assessment Pt has full range of motion today with minimal discomfort. She doesnt have tingling numbness sensation and tension heandache for the past 7 days as well. Progress to scap stabilization and strengthening today and pt johnson well. Physical Therapy Plan Frequency and Duration Frequency of Treatment 2x/Week Duration of Treatment 8 weeks Plan of Care Start Date 08/09/20 Plan of Care End Date 10/09/20 Therapeutic Interventions Therapeutic Interventions Home Exercise Program,Joint Mobilizations,Manual Therapy, Neuromuscular Re-education, Patient/Caregiver Education, Self-Care/Home Management,Soft Tissue Mobilization,Taping, Therapeutic Activities, Therapeutic Exercises Modalities Biofeedback,Cold Pack/Ice Massage,Electric Stimulation, Hot Packs,Infrared Therapy, Iontophoresis,Paraffin Bath, Traction- Mechanical, Ultrasound Next Visit Focus/Plan Next Note Type Treatment Note Next Visit Plan manual @ bicep tendon, RTC followed by ROM ex manula @ suboccipitals, SCM followed by stretching at levator scap and R trap check scapula movements.
--- NOTE | 2020-08-31 09:02 | PT.OTN ---
Current Diagnoses Pain in right shoulder (08/31/20) Impingement syndrome of right shoulder (08/31/20) Physical Therapy Treatment Note PT-OP-A Visit Information Start: 08/10/20 08:06 Freq: Status: Active Protocol: Document 08/31/20 08:14 HH (Rec: 08/31/20 09:01 [id number]) Out-Patient Physical Therapy Visit Information Visit Information Visit Type Treatment Note Visit Start Time 08:17 Visit Stop Time 09:00 Total Visit Minutes 43 Visit Number 5 Number of FAN BLADE ALIGNER Visits 0 PT-OP-B Current Condition Start: 08/10/20 08:06 Freq: Status: Active Protocol: Document 08/10/20 10:00 HH (Rec: 08/10/20 10:40 [email or web address]) Current Condition History of Current Condition Onset Date Februray Current Complaints R shoulder pain, R neck pain History of Current Condition Lin is a 54 yo healthy female (L hand dominant) here for her new onset of R shoulder pain and chronic R neck pain since [facility] and five years ago. Symptoms started in [facility] after she moved from [place] to [place]. She denies any known injury but pain started as nagging discomfort but it has been getting worse. She also started having tingling and numbness down to her R pinky and her pain worse with any shoulder movements especially abduction. She has difficulty opening a jar, holding a coffee and sleeping on her R side. Pt consulted orthopedist Dr. Rodrigues and he believes pt has bursitis vs RTC tendinitis vs adhesive capsulitis. Current Functional Impairments (Reported) Functional Limitations- ADL's pain with opening jar/ holding a weighted object pain with donning her bra Functional Limitations- Recreation/ unable to kayak, play golf d/t Hobbies pain PT-OP-C Subjective Start: 08/10/20 08:06 Freq: Status: Active Protocol: Document 08/31/20 08:14 HH (Rec: 08/31/20 09:01 [id number]) OP-PT Subjective Patient Comments Patient Comments I went to see and he is pleased with my progress . I still have tenderness at my front of R shoulder but All my tingling and numbness has been gone. I did have a headache 3 days ago but it then went away. Patient Reported Progress Improving PT-OP-E Functional Tests Start: 08/10/20 08:06 Freq: Status: Active Protocol: Document 08/10/20 10:00 HH (Rec: 08/10/20 10:40 [email or web address]) Functional Tests Apley's Scratch Test Action 1- Left no pain Action 1- Right no pain Action 2- Left T2 Action 2- Right T2 with pain Action 3- Left T10 Action 3- Right T12 with pain PT-OP-F Manual Assessment Start: 08/10/20 08:06 Freq: Status: Active Protocol: Document 08/10/20 10:00 HH (Rec: 08/10/20 10:40 [email or web address]) Manual Assessments Soft Tissue Assessment Soft Tissue Mobility Assessment significant hypertonicity at proximal bicep and long head tendon tenderness to pressure at supraspinatus and infraspinatus hypertonicity at R subocciputal muscle group PT-OP-K Range of Motion Start: 08/10/20 08:06 Freq: Status: Active Protocol: Document 08/10/20 10:00 HH (Rec: 08/10/20 10:40 [email or web address]) Cervical Spine Range of Motion Cervical Spine Active Degrees Testing Position Sitting Rotation Left 85 Rotation Right 65 Comments pain with end range extension at T2-T4 pain with end range R rotation Shoulder Goniometric Range of Motion Shoulder Right Active Shoulder ROM WFL Yes Testing Position Standing Flexion 150 Abduction 105 External Rotation at 90 degrees 80 Abduction Internal Rotation 85 Left Active Shoulder ROM WFL Yes Testing Position Standing Flexion 150 Abduction 140 External Rotation at 90 degrees 95 Abduction Internal Rotation 85 PT-OP-L Special Tests Start: 08/10/20 08:06 Freq: Status: Active Protocol: Document 08/10/20 10:00 HH (Rec: 08/10/20 10:40 [email or web address]) Special Tests Shoulder Special Tests painful arc Test Results +ve R Comments abduction at 80 degrees Lift-Off Rotator Cuff Test Results +ve R Comments pain and weakness Empty Can Test Results -ve B External Rotation Lag Sign Test Results -ve B Comments no increase passive ER at R Drop Arm Rotator Cuff Test Results -ve B Comments pain to abduct AC Joint Compression Test Results -ve B Belly Press Test Results -ve B PT-OP-M Strength Start: 08/10/20 08:06 Freq: Status: Active Protocol: Document 08/10/20 10:00 HH (Rec: 08/10/20 10:40 [email or web address]) Shoulder Strength Shoulder Manual Muscle Testing Right Flexion 4 Good Extension 4 Good Abduction (C5) 3+ Fair+ Adduction 4+ Good+ External Rotation 4+ Good+ Internal Rotation 4+ Good+ Left Flexion 5 Normal Extension 5 Normal Abduction (C5) 5 Normal Adduction 5 Normal External Rotation 5 Normal Internal Rotation 5 Normal PT-OP-Q Treatments Start: 08/10/20 08:06 Freq: Status: Active Protocol: Document 08/31/20 08:14 (Rec: 08/31/20 09:01 [id number]) Therapeutic Exercises Supine Exercises snow julian Equipment Used foam roller Reps/Minutes 4 mins Comments chin tuck and pec stretch Sitting Exercises shoulder ER Equipment Used level 1 Reps/Minutes 10 x 2 Comments for HEP Standing Exercises scap retraction Side bilateral Equipment Used level 1 band Reps/Minutes 8 x 2 Comments cues on retraction, for HEP Manual Therapy Treatment Soft Tissue Mobilization suboccipitals Mobilization Type Sustained Pressure,Trigger Point Release Intensity/Depth Moderate Body Position Supine Comments + levator scap pecs Mobilization Type Sustained Pressure,Trigger Point Release Intensity/Depth Moderate Body Position Supine Joint Mobilizations C/S Joint traction Grade III Body Position Supine R GHJ Direction post glide Grade III Body Position Supine Comments with passisve ER and IR. pain relief noted. PT-OP-T Assessment and Plan Start: 08/10/20 08:06 Freq: Status: Active Protocol: Document 08/31/20 08:14 (Rec: 08/31/20 09:01 [id number]) Physical Therapy Assessment Goals Neck pain and headache Impairment pt has constant tension headache and neck pain Short Term Goal (STG) pt will have tension headahce on R side no more than 4 times a week to improve her overall focus and attention STG Duration 4 weeks Shelter Goal (LTG) pt will have tension headahce on R side no more than 2 times a week to improve her overall work productivity and focus. LTG Duration 8 weeks return to activities Shelter Goal (LTG) pt will be able to participate kayaking, playing golf and other activitiies involves shoulder movements without difficulty LTG Duration 8 weeks ROM Impairment limited R shoulder ROM Short Term Goal (STG) pt will regain her R shoulder full AROM with pain no more than 2/10 STG Duration 4 weeks Chipper Feeder Goal (LTG) pt will have full R shoulder ROM without pain and neurological signs on her ulnar nerve. LTG Duration 8 weeks quickdash Impairment pt scores 84 on quickdash Short Term Goal (STG) Pt will improve overall her R shoulder mobility and strength to score <50 on quickdash STG Duration 4 weeks Shelter Goal (LTG) Pt will improve overall her R shoulder mobility and strength to score <30 on quickdash, therefore, she can perform daily tasks like opening jars, holding weighted object without difficulty. LTG Duration 8 weeks Assessment Summary Assessment pt has been sleeping well, along with only 1 headache over the past 2 weeks. She still has discomfort at bicipital groove with diffiuclty reaching behind her back. Added snow julian on foam roller and shoulder ER to HEP. Physical Therapy Plan Frequency and Duration Frequency of Treatment 2x/Week Duration of Treatment 8 weeks Plan of Care Start Date 08/09/20 Plan of Care End Date 10/09/20 Therapeutic Interventions Therapeutic Interventions Home Exercise Program,Joint Mobilizations,Manual Therapy, Neuromuscular Re-education, Patient/Caregiver Education, Self-Care/Home Management,Soft Tissue Mobilization,Taping, Therapeutic Activities, Therapeutic Exercises Modalities Biofeedback,Cold Pack/Ice Massage,Electric Stimulation, Hot Packs,Infrared Therapy, Iontophoresis,Paraffin Bath, Traction- Mechanical, Ultrasound Next Visit Focus/Plan Next Note Type Treatment Note Next Visit Plan manual @ bicep tendon, RTC followed by ROM ex manula @ suboccipitals, SCM followed by stretching at levator scap and R trap check scapula movements.
--- NOTE | 2020-09-05 12:50 | PT.OTN ---
Current Diagnoses Pain in right shoulder (09/05/20) Impingement syndrome of right shoulder (09/05/20) Physical Therapy Treatment Note PT-OP-A Visit Information Start: 08/10/20 08:06 Freq: Status: Active Protocol: Document 09/05/20 11:12 HH (Rec: 09/05/20 11:17 [id number]) Out-Patient Physical Therapy Visit Information Visit Information Visit Type Treatment Note Visit Start Time 11:15 Visit Stop Time 12:00 Total Visit Minutes 45 Visit Number 6 Number of DIABETES TERRITORY MANAGER Visits 0 PT-OP-B Current Condition Start: 08/10/20 08:06 Freq: Status: Active Protocol: Document 08/10/20 10:00 HH (Rec: 08/10/20 10:40 HH [email or web address]) Current Condition History of Current Condition Onset Date Februray Current Complaints R shoulder pain, R neck pain History of Current Condition Lin is a 54 yo healthy female (L hand dominant) here for her new onset of R shoulder pain and chronic R neck pain since [facility] and five years ago. Symptoms started in [facility] after she moved from [place] to [place]. She denies any known injury but pain started as nagging discomfort but it has been getting worse. She also started having tingling and numbness down to her R pinky and her pain worse with any shoulder movements especially abduction. She has difficulty opening a jar, holding a coffee and sleeping on her R side. Pt consulted orthopedist Dr. Rodrigues and he believes pt has bursitis vs RTC tendinitis vs adhesive capsulitis. Current Functional Impairments (Reported) Functional Limitations- ADL's pain with opening jar/ holding a weighted object pain with donning her bra Functional Limitations- Recreation/ unable to kayak, play golf d/t Hobbies pain PT-OP-C Subjective Start: 08/10/20 08:06 Freq: Status: Active Protocol: Document 09/05/20 11:12 HH (Rec: 09/05/20 11:17 HH [id number]) OP-PT Subjective Patient Comments Patient Comments Today is a bad day because i played golf yesterday and i only played 7 holes. The snow julian and external rotation exercies have been hurting me. Patient Reported Progress Worse PT-OP-E Functional Tests Start: 08/10/20 08:06 Freq: Status: Active Protocol: Document 08/10/20 10:00 HH (Rec: 08/10/20 10:40 [email or web address]) Functional Tests Apley's Scratch Test Action 1- Left no pain Action 1- Right no pain Action 2- Left T2 Action 2- Right T2 with pain Action 3- Left T10 Action 3- Right T12 with pain PT-OP-F Manual Assessment Start: 08/10/20 08:06 Freq: Status: Active Protocol: Document 08/10/20 10:00 HH (Rec: 08/10/20 10:40 [email or web address]) Manual Assessments Soft Tissue Assessment Soft Tissue Mobility Assessment significant hypertonicity at proximal bicep and long head tendon tenderness to pressure at supraspinatus and infraspinatus hypertonicity at R subocciputal muscle group PT-OP-K Range of Motion Start: 08/10/20 08:06 Freq: Status: Active Protocol: Document 08/10/20 10:00 HH (Rec: 08/10/20 10:40 [email or web address]) Cervical Spine Range of Motion Cervical Spine Active Degrees Testing Position Sitting Rotation Left 85 Rotation Right 65 Comments pain with end range extension at T2-T4 pain with end range R rotation Shoulder Goniometric Range of Motion Shoulder Right Active Shoulder ROM WFL Yes Testing Position Standing Flexion 150 Abduction 105 External Rotation at 90 degrees 80 Abduction Internal Rotation 85 Left Active Shoulder ROM WFL Yes Testing Position Standing Flexion 150 Abduction 140 External Rotation at 90 degrees 95 Abduction Internal Rotation 85 PT-OP-L Special Tests Start: 08/10/20 08:06 Freq: Status: Active Protocol: Document 08/10/20 10:00 HH (Rec: 08/10/20 10:40 [email or web address]) Special Tests Shoulder Special Tests painful arc Test Results +ve R Comments abduction at 80 degrees Lift-Off Rotator Cuff Test Results +ve R Comments pain and weakness Empty Can Test Results -ve B External Rotation Lag Sign Test Results -ve B Comments no increase passive ER at R Drop Arm Rotator Cuff Test Results -ve B Comments pain to abduct AC Joint Compression Test Results -ve B Belly Press Test Results -ve B PT-OP-M Strength Start: 08/10/20 08:06 Freq: Status: Active Protocol: Document 08/10/20 10:00 HH (Rec: 08/10/20 10:40 HH [email or web address]) Shoulder Strength Shoulder Manual Muscle Testing Right Flexion 4 Good Extension 4 Good Abduction (C5) 3+ Fair+ Adduction 4+ Good+ External Rotation 4+ Good+ Internal Rotation 4+ Good+ Left Flexion 5 Normal Extension 5 Normal Abduction (C5) 5 Normal Adduction 5 Normal External Rotation 5 Normal Internal Rotation 5 Normal PT-OP-Q Treatments Start: 08/10/20 08:06 Freq: Status: Active Protocol: Document 09/05/20 11:12 (Rec: 09/05/20 12:50 HH [email or web address]) Therapeutic Exercises Supine Exercises snow julian Comments pain reported today Sidelying Exercises horizontal abduction Comments pain reported today shoulder ER Comments pain reported today open book Side bilateral Reps/Minutes 8 x2 Comments cues to engage trunk rotation Standing Exercises OH giorgio Standing Exercise Name flexion and abduction Side bilateral Reps/Minutes 2 mins each direction Comments educated pt to acquire one for HEP scap retraction Side bilateral Equipment Used level 1 band Reps/Minutes 8 x 2 Comments cues on retraction, Manual Therapy Treatment Soft Tissue Mobilization pecs Mobilization Type Sustained Pressure,Trigger Point Release Intensity/Depth Moderate Body Position Supine Comments increased tonicity noted. RTC Body Location infraspinatus Mobilization Type Sustained Pressure,Trigger Point Release Intensity/Depth Moderate Body Position Supine Comments increased tonicity noted. bicep Body Location R bicep and long head tendon Mobilization Type Sustained Pressure,Trigger Point Release Intensity/Depth Moderate Body Position Supine Comments pain noted from proximal bicep to long head tendon increased tonicity noted. PT-OP-T Assessment and Plan Start: 08/10/20 08:06 Freq: Status: Active Protocol: Document 09/05/20 11:12 (Rec: 09/05/20 12:50 [email or web address]) Physical Therapy Assessment Goals Neck pain and headache Impairment pt has constant tension headache and neck pain Short Term Goal (STG) pt will have tension headahce on R side no more than 4 times a week to improve her overall focus and attention STG Duration 4 weeks Epic Cadence Analyst Goal (LTG) pt will have tension headahce on R side no more than 2 times a week to improve her overall work productivity and focus. LTG Duration 8 weeks return to activities Epic Cadence Analyst Goal (LTG) pt will be able to participate kayaking, playing golf and other activitiies involves shoulder movements without difficulty LTG Duration 8 weeks ROM Impairment limited R shoulder ROM Short Term Goal (STG) pt will regain her R shoulder full AROM with pain no more than 2/10 STG Duration 4 weeks Senior Care Goal (LTG) pt will have full R shoulder ROM without pain and neurological signs on her ulnar nerve. LTG Duration 8 weeks quickdash Impairment pt scores 84 on quickdash Short Term Goal (STG) Pt will improve overall her R shoulder mobility and strength to score <50 on quickdash STG Duration 4 weeks Senior Care Goal (LTG) Pt will improve overall her R shoulder mobility and strength to score <30 on quickdash, therefore, she can perform daily tasks like opening jars, holding weighted object without difficulty. LTG Duration 8 weeks Assessment Summary Assessment pt hasnt had any neck pain and headache since last visit but flare up at R shoulder after she played golf yesterday. Increased pain and tonicity noted today and educated pt to scale back her HEP and rest for 2 more days. Recommended her to do open book and scap retraction, along with ice for pain management. Physical Therapy Plan Frequency and Duration Frequency of Treatment 2x/Week Duration of Treatment 8 weeks Plan of Care Start Date 08/09/20 Plan of Care End Date 10/09/20 Therapeutic Interventions Therapeutic Interventions Home Exercise Program,Joint Mobilizations,Manual Therapy, Neuromuscular Re-education, Patient/Caregiver Education, Self-Care/Home Management,Soft Tissue Mobilization,Taping, Therapeutic Activities, Therapeutic Exercises Modalities Biofeedback,Cold Pack/Ice Massage,Electric Stimulation, Hot Packs,Infrared Therapy, Iontophoresis,Paraffin Bath, Traction- Mechanical, Ultrasound Next Visit Focus/Plan Next Note Type Treatment Note Next Visit Plan manual @ bicep tendon, RTC followed by ROM ex manula @ suboccipitals, SCM followed by stretching at levator scap and R trap check scapula movements.
--- NOTE | 2020-09-07 09:03 | PT.OTN ---
Current Diagnoses Pain in right shoulder (09/07/20) Impingement syndrome of right shoulder (09/07/20) Physical Therapy Treatment Note PT-OP-A Visit Information Start: 08/10/20 08:06 Freq: Status: Active Protocol: Document 09/07/20 08:14 HH (Rec: 09/07/20 09:03 [id number]) Out-Patient Physical Therapy Visit Information Visit Information Visit Type Treatment Note Visit Start Time 08:15 Visit Stop Time 09:00 Total Visit Minutes 45 Visit Number 7 Number of S[employer] DEVELOPER Visits 0 PT-OP-B Current Condition Start: 08/10/20 08:06 Freq: Status: Active Protocol: Document 08/10/20 10:00 HH (Rec: 08/10/20 10:40 HH [email or web address]) Current Condition History of Current Condition Onset Date Februray Current Complaints R shoulder pain, R neck pain History of Current Condition Lin is a 54 yo healthy female (L hand dominant) here for her new onset of R shoulder pain and chronic R neck pain since [facility] and five years ago. Symptoms started in [facility] after she moved from [place] to [place]. She denies any known injury but pain started as nagging discomfort but it has been getting worse. She also started having tingling and numbness down to her R pinky and her pain worse with any shoulder movements especially abduction. She has difficulty opening a jar, holding a coffee and sleeping on her R side. Pt consulted orthopedist Dr. Rodrigues and he believes pt has bursitis vs RTC tendinitis vs adhesive capsulitis. Current Functional Impairments (Reported) Functional Limitations- ADL's pain with opening jar/ holding a weighted object pain with donning her bra Functional Limitations- Recreation/ unable to kayak, play golf d/t Hobbies pain PT-OP-C Subjective Start: 08/10/20 08:06 Freq: Status: Active Protocol: Document 09/07/20 08:14 HH (Rec: 09/07/20 09:03 [id number]) OP-PT Subjective Patient Comments Patient Comments my shoulder feels great after last time but it aches again yesterday. Jacy been having the tension headache only once a week which is great Patient Reported Progress Improving PT-OP-E Functional Tests Start: 08/10/20 08:06 Freq: Status: Active Protocol: Document 08/10/20 10:00 HH (Rec: 08/10/20 10:40 [email or web address]) Functional Tests Apley's Scratch Test Action 1- Left no pain Action 1- Right no pain Action 2- Left T2 Action 2- Right T2 with pain Action 3- Left T10 Action 3- Right T12 with pain PT-OP-F Manual Assessment Start: 08/10/20 08:06 Freq: Status: Active Protocol: Document 08/10/20 10:00 HH (Rec: 08/10/20 10:40 [email or web address]) Manual Assessments Soft Tissue Assessment Soft Tissue Mobility Assessment significant hypertonicity at proximal bicep and long head tendon tenderness to pressure at supraspinatus and infraspinatus hypertonicity at R subocciputal muscle group PT-OP-K Range of Motion Start: 08/10/20 08:06 Freq: Status: Active Protocol: Document 08/10/20 10:00 HH (Rec: 08/10/20 10:40 [email or web address]) Cervical Spine Range of Motion Cervical Spine Active Degrees Testing Position Sitting Rotation Left 85 Rotation Right 65 Comments pain with end range extension at T2-T4 pain with end range R rotation Shoulder Goniometric Range of Motion Shoulder Right Active Shoulder ROM WFL Yes Testing Position Standing Flexion 150 Abduction 105 External Rotation at 90 degrees 80 Abduction Internal Rotation 85 Left Active Shoulder ROM WFL Yes Testing Position Standing Flexion 150 Abduction 140 External Rotation at 90 degrees 95 Abduction Internal Rotation 85 PT-OP-L Special Tests Start: 08/10/20 08:06 Freq: Status: Active Protocol: Document 08/10/20 10:00 HH (Rec: 08/10/20 10:40 [email or web address]) Special Tests Shoulder Special Tests painful arc Test Results +ve R Comments abduction at 80 degrees Lift-Off Rotator Cuff Test Results +ve R Comments pain and weakness Empty Can Test Results -ve B External Rotation Lag Sign Test Results -ve B Comments no increase passive ER at R Drop Arm Rotator Cuff Test Results -ve B Comments pain to abduct AC Joint Compression Test Results -ve B Belly Press Test Results -ve B PT-OP-M Strength Start: 08/10/20 08:06 Freq: Status: Active Protocol: Document 08/10/20 10:00 HH (Rec: 08/10/20 10:40 [email or web address]) Shoulder Strength Shoulder Manual Muscle Testing Right Flexion 4 Good Extension 4 Good Abduction (C5) 3+ Fair+ Adduction 4+ Good+ External Rotation 4+ Good+ Internal Rotation 4+ Good+ Left Flexion 5 Normal Extension 5 Normal Abduction (C5) 5 Normal Adduction 5 Normal External Rotation 5 Normal Internal Rotation 5 Normal PT-OP-Q Treatments Start: 08/10/20 08:06 Freq: Status: Active Protocol: Document 09/07/20 08:14 (Rec: 09/07/20 09:03 [id number]) Therapeutic Exercises Sidelying Exercises horizontal abduction Reps/Minutes 8 x2 Comments no pain today, cues with scap retraction shoulder ER Equipment Used towel under elbow Reps/Minutes 8x2 Comments no pain today, cues with scpa retraction open book Side bilateral Reps/Minutes 8 x2 Comments cues to engage trunk rotation Standing Exercises OH giorgio Standing Exercise Name flexion and abduction Side bilateral Reps/Minutes 2 mins each direction Comments educated pt to acquire one for HEP scap retraction Side bilateral Equipment Used level 1 band Reps/Minutes 8 x 2 Comments cues on retraction, Manual Therapy Treatment Soft Tissue Mobilization pecs Mobilization Type Sustained Pressure,Trigger Point Release Intensity/Depth Moderate Body Position Supine Comments increased tonicity noted. RTC Body Location infraspinatus and lats Mobilization Type Sustained Pressure,Trigger Point Release Intensity/Depth Moderate Body Position Supine Comments increased tonicity noted. bicep Body Location R bicep and long head tendon Mobilization Type Sustained Pressure,Trigger Point Release Intensity/Depth Moderate Body Position Supine Comments pain noted from proximal bicep to long head tendon increased tonicity noted. Joint Mobilizations R GHJ Direction post glide Grade III Body Position Supine Comments with passisve ER and IR. pain relief noted. PT-OP-T Assessment and Plan Start: 08/10/20 08:06 Freq: Status: Active Protocol: Document 09/07/20 08:14 (Rec: 09/07/20 09:03 [id number]) Physical Therapy Assessment Goals Neck pain and headache Impairment pt has constant tension headache and neck pain Short Term Goal (STG) pt will have tension headahce on R side no more than 4 times a week to improve her overall focus and attention STG Duration 4 weeks Intermediate Goal (LTG) pt will have tension headahce on R side no more than 2 times a week to improve her overall work productivity and focus. LTG Duration 8 weeks return to activities Intermediate Goal (LTG) pt will be able to participate kayaking, playing golf and other activitiies involves shoulder movements without difficulty LTG Duration 8 weeks ROM Impairment limited R shoulder ROM Short Term Goal (STG) pt will regain her R shoulder full AROM with pain no more than 2/10 STG Duration 4 weeks Intermediate Goal (LTG) pt will have full R shoulder ROM without pain and neurological signs on her ulnar nerve. LTG Duration 8 weeks quickdash Impairment pt scores 84 on quickdash Short Term Goal (STG) Pt will improve overall her R shoulder mobility and strength to score <50 on quickdash STG Duration 4 weeks Plant Controller Goal (LTG) Pt will improve overall her R shoulder mobility and strength to score <30 on quickdash, therefore, she can perform daily tasks like opening jars, holding weighted object without difficulty. LTG Duration 8 weeks Assessment Summary Assessment Pt has less pain and irritation today. Her lats shows hypertonicity but relieved after manual therapy. Recommended pt to focus on open book , OH giorgio and scap retraction for recovery and pain management. Physical Therapy Plan Frequency and Duration Frequency of Treatment 2x/Week Duration of Treatment 8 weeks Plan of Care Start Date 08/09/20 Plan of Care End Date 10/09/20 Therapeutic Interventions Therapeutic Interventions Home Exercise Program,Joint Mobilizations,Manual Therapy, Neuromuscular Re-education, Patient/Caregiver Education, Self-Care/Home Management,Soft Tissue Mobilization,Taping, Therapeutic Activities, Therapeutic Exercises Modalities Biofeedback,Cold Pack/Ice Massage,Electric Stimulation, Hot Packs,Infrared Therapy, Iontophoresis,Paraffin Bath, Traction- Mechanical, Ultrasound Next Visit Focus/Plan Next Note Type Treatment Note Next Visit Plan manual @ bicep tendon, RTC followed by ROM ex manula @ suboccipitals, SCM followed by stretching at levator scap and R trap check scapula movements.
--- NOTE | 2020-09-14 09:16 | PT.OTN ---
Current Diagnoses Pain in right shoulder (09/14/20) Impingement syndrome of right shoulder (09/14/20) Physical Therapy Treatment Note PT-OP-A Visit Information Start: 08/10/20 08:06 Freq: Status: Active Protocol: Document 09/14/20 08:12 HH (Rec: 09/14/20 09:16 [id number]) Out-Patient Physical Therapy Visit Information Visit Information Visit Type Treatment Note Visit Start Time 08:15 Visit Stop Time 09:08 Total Visit Minutes 53 Visit Number 8 Number of RN REVIEW Visits 0 PT-OP-B Current Condition Start: 08/10/20 08:06 Freq: Status: Active Protocol: Document 08/10/20 10:00 HH (Rec: 08/10/20 10:40 [email or web address]) Current Condition History of Current Condition Onset Date Februray Current Complaints R shoulder pain, R neck pain History of Current Condition Lin is a 54 yo healthy female (L hand dominant) here for her new onset of R shoulder pain and chronic R neck pain since [facility] and five years ago. Symptoms started in [facility] after she moved from [place] to [place]. She denies any known injury but pain started as nagging discomfort but it has been getting worse. She also started having tingling and numbness down to her R pinky and her pain worse with any shoulder movements especially abduction. She has difficulty opening a jar, holding a coffee and sleeping on her R side. Pt consulted orthopedist Dr. Rodrigues and he believes pt has bursitis vs RTC tendinitis vs adhesive capsulitis. Current Functional Impairments (Reported) Functional Limitations- ADL's pain with opening jar/ holding a weighted object pain with donning her bra Functional Limitations- Recreation/ unable to kayak, play golf d/t Hobbies pain PT-OP-C Subjective Start: 08/10/20 08:06 Freq: Status: Active Protocol: Document 09/14/20 08:12 HH (Rec: 09/14/20 09:16 [id number]) OP-PT Subjective Patient Comments Patient Comments My shoulder was good after last time until i played golf on Saturday. I did finish all 9 holes but it was killing me after. I had a headache once but it got better immediately after the neck stretch. Patient Reported Progress Improving PT-OP-E Functional Tests Start: 08/10/20 08:06 Freq: Status: Active Protocol: Document 08/10/20 10:00 HH (Rec: 08/10/20 10:40 [email or web address]) Functional Tests Apley's Scratch Test Action 1- Left no pain Action 1- Right no pain Action 2- Left T2 Action 2- Right T2 with pain Action 3- Left T10 Action 3- Right T12 with pain PT-OP-F Manual Assessment Start: 08/10/20 08:06 Freq: Status: Active Protocol: Document 08/10/20 10:00 HH (Rec: 08/10/20 10:40 [email or web address]) Manual Assessments Soft Tissue Assessment Soft Tissue Mobility Assessment significant hypertonicity at proximal bicep and long head tendon tenderness to pressure at supraspinatus and infraspinatus hypertonicity at R subocciputal muscle group PT-OP-K Range of Motion Start: 08/10/20 08:06 Freq: Status: Active Protocol: Document 08/10/20 10:00 HH (Rec: 08/10/20 10:40 [email or web address]) Cervical Spine Range of Motion Cervical Spine Active Degrees Testing Position Sitting Rotation Left 85 Rotation Right 65 Comments pain with end range extension at T2-T4 pain with end range R rotation Shoulder Goniometric Range of Motion Shoulder Right Active Shoulder ROM WFL Yes Testing Position Standing Flexion 150 Abduction 105 External Rotation at 90 degrees 80 Abduction Internal Rotation 85 Left Active Shoulder ROM WFL Yes Testing Position Standing Flexion 150 Abduction 140 External Rotation at 90 degrees 95 Abduction Internal Rotation 85 PT-OP-L Special Tests Start: 08/10/20 08:06 Freq: Status: Active Protocol: Document 08/10/20 10:00 HH (Rec: 08/10/20 10:40 [email or web address]) Special Tests Shoulder Special Tests painful arc Test Results +ve R Comments abduction at 80 degrees Lift-Off Rotator Cuff Test Results +ve R Comments pain and weakness Empty Can Test Results -ve B External Rotation Lag Sign Test Results -ve B Comments no increase passive ER at R Drop Arm Rotator Cuff Test Results -ve B Comments pain to abduct AC Joint Compression Test Results -ve B Belly Press Test Results -ve B PT-OP-M Strength Start: 08/10/20 08:06 Freq: Status: Active Protocol: Document 08/10/20 10:00 HH (Rec: 08/10/20 10:40 [email or web address]) Shoulder Strength Shoulder Manual Muscle Testing Right Flexion 4 Good Extension 4 Good Abduction (C5) 3+ Fair+ Adduction 4+ Good+ External Rotation 4+ Good+ Internal Rotation 4+ Good+ Left Flexion 5 Normal Extension 5 Normal Abduction (C5) 5 Normal Adduction 5 Normal External Rotation 5 Normal Internal Rotation 5 Normal PT-OP-Q Treatments Start: 08/10/20 08:06 Freq: Status: Active Protocol: Document 09/14/20 08:12 (Rec: 09/14/20 09:16 [id number]) Cardio Equipment Upper Body Ergometer (UBE) Duration (Minutes) 4 RPM 60 Other 30 sec and change direction Therapeutic Exercises Supine Exercises shoulder punch Equipment Used PVC Reps/Minutes 15x1 Sidelying Exercises shoulder ER Equipment Used towel under elbow Reps/Minutes 8x2 Comments slight pain today open book Side bilateral Reps/Minutes 8 x2 Comments cues to engage trunk rotation Standing Exercises shoulder extension Side bilateral Equipment Used level 1 Comments pain at R anterior shoulder OH giorgio Standing Exercise Name flexion and abduction Side bilateral Reps/Minutes 2 mins each direction scap retraction Side bilateral Equipment Used level 1 band Reps/Minutes 8 x 2 Comments cues on retraction, shoulder ER Side right Equipment Used red band Reps/Minutes 8 x2 Comments not ready d/t pain. Manual Therapy Treatment Soft Tissue Mobilization lats Mobilization Type Myofascial Release Intensity/Depth Moderate Body Position Sidelying Comments significant tonicity noted pecs Mobilization Type Sustained Pressure,Trigger Point Release Intensity/Depth Moderate Body Position Supine Comments increased tonicity noted. Joint Mobilizations R GHJ Direction post glide Grade III Body Position Supine Comments with passisve ER and IR. Full ER noted but pain with IR PT-OP-T Assessment and Plan Start: 08/10/20 08:06 Freq: Status: Active Protocol: Document 09/14/20 08:12 (Rec: 09/14/20 09:16 [id number]) Physical Therapy Assessment Goals Neck pain and headache Impairment pt has constant tension headache and neck pain Short Term Goal (STG) pt will have tension headahce on R side no more than 4 times a week to improve her overall focus and attention STG Duration 4 weeks Forest Fire Warden Goal (LTG) pt will have tension headahce on R side no more than 2 times a week to improve her overall work productivity and focus. LTG Duration 8 weeks return to activities Residential Goal (LTG) pt will be able to participate kayaking, playing golf and other activitiies involves shoulder movements without difficulty LTG Duration 8 weeks ROM Impairment limited R shoulder ROM Short Term Goal (STG) pt will regain her R shoulder full AROM with pain no more than 2/10 STG Duration 4 weeks Residential Goal (LTG) pt will have full R shoulder ROM without pain and neurological signs on her ulnar nerve. LTG Duration 8 weeks quickdash Impairment pt scores 84 on quickdash Short Term Goal (STG) Pt will improve overall her R shoulder mobility and strength to score <50 on quickdash STG Duration 4 weeks Residential Goal (LTG) Pt will improve overall her R shoulder mobility and strength to score <30 on quickdash, therefore, she can perform daily tasks like opening jars, holding weighted object without difficulty. LTG Duration 8 weeks Assessment Summary Assessment Pt has irritation after playing golf on saturday. Spent time educating her to put playing golf on hold for load management. Tx focused on AROM , scap stabilization, and RTC strengthening today and noticed her R shoulder is still quite irritated from saturday. Physical Therapy Plan Frequency and Duration Frequency of Treatment 2x/Week Duration of Treatment 8 weeks Plan of Care Start Date 08/09/20 Plan of Care End Date 10/09/20 Therapeutic Interventions Therapeutic Interventions Home Exercise Program,Joint Mobilizations,Manual Therapy, Neuromuscular Re-education, Patient/Caregiver Education, Self-Care/Home Management,Soft Tissue Mobilization,Taping, Therapeutic Activities, Therapeutic Exercises Modalities Biofeedback,Cold Pack/Ice Massage,Electric Stimulation, Hot Packs,Infrared Therapy, Iontophoresis,Paraffin Bath, Traction- Mechanical, Ultrasound Next Visit Focus/Plan Next Note Type Treatment Note Next Visit Plan manual @ bicep tendon, RTC followed by ROM ex manula @ suboccipitals, SCM followed by stretching at levator scap and R trap check scapula movements.
--- NOTE | 2020-09-16 09:02 | PT.OTN ---
Current Diagnoses Pain in right shoulder (09/16/20) Impingement syndrome of right shoulder (09/16/20) Physical Therapy Treatment Note PT-OP-A Visit Information Start: 08/10/20 08:06 Freq: Status: Active Protocol: Document 09/16/20 08:12 HH (Rec: 09/16/20 09:02 [id number]) Out-Patient Physical Therapy Visit Information Visit Information Visit Type Treatment Note Visit Start Time 08:17 Visit Stop Time 09:00 Total Visit Minutes 43 Visit Number 9 Number of CONSULTING DATABASE ADMINISTRATOR Visits 0 PT-OP-B Current Condition Start: 08/10/20 08:06 Freq: Status: Active Protocol: Document 08/10/20 10:00 HH (Rec: 08/10/20 10:40 [email or web address]) Current Condition History of Current Condition Onset Date Februray Current Complaints R shoulder pain, R neck pain History of Current Condition Lin is a 54 yo healthy female (L hand dominant) here for her new onset of R shoulder pain and chronic R neck pain since [facility] and five years ago. Symptoms started in [facility] after she moved from [place] to [place]. She denies any known injury but pain started as nagging discomfort but it has been getting worse. She also started having tingling and numbness down to her R pinky and her pain worse with any shoulder movements especially abduction. She has difficulty opening a jar, holding a coffee and sleeping on her R side. Pt consulted orthopedist Dr. Rodrigues and he believes pt has bursitis vs RTC tendinitis vs adhesive capsulitis. Current Functional Impairments (Reported) Functional Limitations- ADL's pain with opening jar/ holding a weighted object pain with donning her bra Functional Limitations- Recreation/ unable to kayak, play golf d/t Hobbies pain PT-OP-C Subjective Start: 08/10/20 08:06 Freq: Status: Active Protocol: Document 09/16/20 08:12 HH (Rec: 09/16/20 09:02 [id number]) OP-PT Subjective Patient Comments Patient Comments Its been calming down a bit now. PT-OP-E Functional Tests Start: 08/10/20 08:06 Freq: Status: Active Protocol: Document 08/10/20 10:00 HH (Rec: 08/10/20 10:40 [email or web address]) Functional Tests Apley's Scratch Test Action 1- Left no pain Action 1- Right no pain Action 2- Left T2 Action 2- Right T2 with pain Action 3- Left T10 Action 3- Right T12 with pain PT-OP-F Manual Assessment Start: 08/10/20 08:06 Freq: Status: Active Protocol: Document 08/10/20 10:00 HH (Rec: 08/10/20 10:40 [email or web address]) Manual Assessments Soft Tissue Assessment Soft Tissue Mobility Assessment significant hypertonicity at proximal bicep and long head tendon tenderness to pressure at supraspinatus and infraspinatus hypertonicity at R subocciputal muscle group PT-OP-K Range of Motion Start: 08/10/20 08:06 Freq: Status: Active Protocol: Document 08/10/20 10:00 HH (Rec: 08/10/20 10:40 [email or web address]) Cervical Spine Range of Motion Cervical Spine Active Degrees Testing Position Sitting Rotation Left 85 Rotation Right 65 Comments pain with end range extension at T2-T4 pain with end range R rotation Shoulder Goniometric Range of Motion Shoulder Right Active Shoulder ROM WFL Yes Testing Position Standing Flexion 150 Abduction 105 External Rotation at 90 degrees 80 Abduction Internal Rotation 85 Left Active Shoulder ROM WFL Yes Testing Position Standing Flexion 150 Abduction 140 External Rotation at 90 degrees 95 Abduction Internal Rotation 85 PT-OP-L Special Tests Start: 08/10/20 08:06 Freq: Status: Active Protocol: Document 08/10/20 10:00 HH (Rec: 08/10/20 10:40 [email or web address]) Special Tests Shoulder Special Tests painful arc Test Results +ve R Comments abduction at 80 degrees Lift-Off Rotator Cuff Test Results +ve R Comments pain and weakness Empty Can Test Results -ve B External Rotation Lag Sign Test Results -ve B Comments no increase passive ER at R Drop Arm Rotator Cuff Test Results -ve B Comments pain to abduct AC Joint Compression Test Results -ve B Belly Press Test Results -ve B PT-OP-M Strength Start: 08/10/20 08:06 Freq: Status: Active Protocol: Document 08/10/20 10:00 HH (Rec: 08/10/20 10:40 [email or web address]) Shoulder Strength Shoulder Manual Muscle Testing Right Flexion 4 Good Extension 4 Good Abduction (C5) 3+ Fair+ Adduction 4+ Good+ External Rotation 4+ Good+ Internal Rotation 4+ Good+ Left Flexion 5 Normal Extension 5 Normal Abduction (C5) 5 Normal Adduction 5 Normal External Rotation 5 Normal Internal Rotation 5 Normal PT-OP-Q Treatments Start: 08/10/20 08:06 Freq: Status: Active Protocol: Document 09/16/20 08:12 (Rec: 09/16/20 09:02 [id number]) Therapeutic Exercises Supine Exercises supine ER Side bilateral Equipment Used PVC Reps/Minutes 10 x2 Comments pain noted Sidelying Exercises shoulder ER Equipment Used towel under elbow Reps/Minutes 8x2 Comments pain improved after manual therapy Standing Exercises OH giorgio Standing Exercise Name flexion and abduction Side bilateral Reps/Minutes 2 mins each direction Comments arm externally rotated Manual Therapy Treatment Soft Tissue Mobilization lats Mobilization Type Myofascial Release Intensity/Depth Moderate Body Position Sidelying Comments significant tonicity noted pecs Mobilization Type Sustained Pressure,Trigger Point Release Intensity/Depth Moderate Body Position Supine Comments increased tonicity noted. RTC Body Location infraspinatus and lats Mobilization Type Sustained Pressure,Trigger Point Release Intensity/Depth Moderate Body Position Supine Comments increased tonicity at supraspinatus noted. Joint Mobilizations R GHJ Direction post glide Grade III Body Position Supine Comments with passisve ER and IR. Full ER noted but pain with IR PT-OP-T Assessment and Plan Start: 08/10/20 08:06 Freq: Status: Active Protocol: Document 09/16/20 08:12 (Rec: 09/16/20 09:02 [id number]) Physical Therapy Assessment Goals Neck pain and headache Impairment pt has constant tension headache and neck pain Short Term Goal (STG) pt will have tension headahce on R side no more than 4 times a week to improve her overall focus and attention STG Duration 4 weeks Suede Brusher Goal (LTG) pt will have tension headahce on R side no more than 2 times a week to improve her overall work productivity and focus. LTG Duration 8 weeks return to activities S[employer]usher Goal (LTG) pt will be able to participate kayaking, playing golf and other activitiies involves shoulder movements without difficulty LTG Duration 8 weeks ROM Impairment limited R shoulder ROM Short Term Goal (STG) pt will regain her R shoulder full AROM with pain no more than 2/10 STG Duration 4 weeks [facility] Goal (LTG) pt will have full R shoulder ROM without pain and neurological signs on her ulnar nerve. LTG Duration 8 weeks quickdash Impairment pt scores 84 on quickdash Short Term Goal (STG) Pt will improve overall her R shoulder mobility and strength to score <50 on quickdash STG Duration 4 weeks Penitentiary Goal (LTG) Pt will improve overall her R shoulder mobility and strength to score <30 on quickdash, therefore, she can perform daily tasks like opening jars, holding weighted object without difficulty. LTG Duration 8 weeks Assessment Summary Assessment Pt has less pain than few days ago but still very tender to pressure at supraspinatus tendon, lats and biceps. Physical Therapy Plan Frequency and Duration Frequency of Treatment 2x/Week Duration of Treatment 8 weeks Plan of Care Start Date 08/09/20 Plan of Care End Date 10/09/20 Therapeutic Interventions Therapeutic Interventions Home Exercise Program,Joint Mobilizations,Manual Therapy, Neuromuscular Re-education, Patient/Caregiver Education, Self-Care/Home Management,Soft Tissue Mobilization,Taping, Therapeutic Activities, Therapeutic Exercises Modalities Biofeedback,Cold Pack/Ice Massage,Electric Stimulation, Hot Packs,Infrared Therapy, Iontophoresis,Paraffin Bath, Traction- Mechanical, Ultrasound Next Visit Focus/Plan Next Note Type Treatment Note Next Visit Plan manual @ bicep tendon, RTC followed by ROM ex manula @ suboccipitals, SCM followed by stretching at levator scap and R trap check scapula movements.
--- NOTE | 2020-09-21 10:53 | PT.OTN ---
Current Diagnoses Pain in right shoulder (09/21/20) Impingement syndrome of right shoulder (09/21/20) Physical Therapy Treatment Note PT-OP-A Visit Information Start: 08/10/20 08:06 Freq: Status: Active Protocol: Document 09/21/20 08:15 HH (Rec: 09/21/20 10:51 [id number]) Out-Patient Physical Therapy Visit Information Visit Information Visit Type Treatment Note Visit Start Time 08:16 Visit Stop Time 09:00 Total Visit Minutes 44 Visit Number 10 Number of SUPERVISOR SUNGLASSES Visits 0 PT-OP-B Current Condition Start: 08/10/20 08:06 Freq: Status: Active Protocol: Document 08/10/20 10:00 HH (Rec: 08/10/20 10:40 [email or web address]) Current Condition History of Current Condition Onset Date Februra Current Complaints R shoulder pain, R neck pain History of Current Condition Lin is a 54 yo healthy female (L hand dominant) here for her new onset of R shoulder pain and chronic R neck pain since [facility] and five years ago. Symptoms started in [facility] after she moved from [place] to [place]. She denies any known injury but pain started as nagging discomfort but it has been getting worse. She also started having tingling and numbness down to her R pinky and her pain worse with any shoulder movements especially abduction. She has difficulty opening a jar, holding a coffee and sleeping on her R side. Pt consulted orthopedist Dr. Rodrigues and he believes pt has bursitis vs RTC tendinitis vs adhesive capsulitis. Current Functional Impairments (Reported) Functional Limitations- ADL's pain with opening jar/ holding a weighted object pain with donning her bra Functional Limitations- Recreation/ unable to kayak, play golf d/t Hobbies pain PT-OP-C Subjective Start: 08/10/20 08:06 Freq: Status: Active Protocol: Document 09/21/20 08:15 HH (Rec: 09/21/20 10:51 [id number]) OP-PT Subjective Patient Comments Patient Comments Saturday was not good at all. I woke up with neck pain and shoulder pain but it gets better now. I noticed my top of my shoulder was hurting a lot and i had to support my R arm to feel relieved Patient Reported Progress Same PT-OP-E Functional Tests Start: 08/10/20 08:06 Freq: Status: Active Protocol: Document 08/10/20 10:00 HH (Rec: 08/10/20 10:40 [email or web address]) Functional Tests Apley's Scratch Test Action 1- Left no pain Action 1- Right no pain Action 2- Left T2 Action 2- Right T2 with pain Action 3- Left T10 Action 3- Right T12 with pain PT-OP-F Manual Assessment Start: 08/10/20 08:06 Freq: Status: Active Protocol: Document 08/10/20 10:00 HH (Rec: 08/10/20 10:40 [email or web address]) Manual Assessments Soft Tissue Assessment Soft Tissue Mobility Assessment significant hypertonicity at proximal bicep and long head tendon tenderness to pressure at supraspinatus and infraspinatus hypertonicity at R subocciputal muscle group PT-OP-K Range of Motion Start: 08/10/20 08:06 Freq: Status: Active Protocol: Document 08/10/20 10:00 HH (Rec: 08/10/20 10:40 [email or web address]) Cervical Spine Range of Motion Cervical Spine Active Degrees Testing Position Sitting Rotation Left 85 Rotation Right 65 Comments pain with end range extension at T2-T4 pain with end range R rotation Shoulder Goniometric Range of Motion Shoulder Right Active Shoulder ROM WFL Yes Testing Position Standing Flexion 150 Abduction 105 External Rotation at 90 degrees 80 Abduction Internal Rotation 85 Left Active Shoulder ROM WFL Yes Testing Position Standing Flexion 150 Abduction 140 External Rotation at 90 degrees 95 Abduction Internal Rotation 85 PT-OP-L Special Tests Start: 08/10/20 08:06 Freq: Status: Active Protocol: Document 08/10/20 10:00 HH (Rec: 08/10/20 10:40 [email or web address]) Special Tests Shoulder Special Tests painful arc Test Results +ve R Comments abduction at 80 degrees Lift-Off Rotator Cuff Test Results +ve R Comments pain and weakness Empty Can Test Results -ve B External Rotation Lag Sign Test Results -ve B Comments no increase passive ER at R Drop Arm Rotator Cuff Test Results -ve B Comments pain to abduct AC Joint Compression Test Results -ve B Belly Press Test Results -ve B PT-OP-M Strength Start: 08/10/20 08:06 Freq: Status: Active Protocol: Document 08/10/20 10:00 HH (Rec: 08/10/20 10:40 [email or web address]) Shoulder Strength Shoulder Manual Muscle Testing Right Flexion 4 Good Extension 4 Good Abduction (C5) 3+ Fair+ Adduction 4+ Good+ External Rotation 4+ Good+ Internal Rotation 4+ Good+ Left Flexion 5 Normal Extension 5 Normal Abduction (C5) 5 Normal Adduction 5 Normal External Rotation 5 Normal Internal Rotation 5 Normal PT-OP-Q Treatments Start: 08/10/20 08:06 Freq: Status: Active Protocol: Document 09/21/20 08:15 (Rec: 09/21/20 10:51 [id number]) Therapeutic Exercises Supine Exercises supine ER Side bilateral Equipment Used PVC Reps/Minutes 10 x2 Comments pain noted, but relief with towel support underneath elbow Sidelying Exercises open book Side bilateral Reps/Minutes 8 x2 Comments no cues needed. Standing Exercises shoulder IR Side right Equipment Used level 1 band (attached to wall ) Reps/Minutes 8 x2 Comments no discomfort noted OH giorgio Standing Exercise Name flexion and abduction Side bilateral Reps/Minutes 2 mins each direction Comments arm externally rotated shoulder ER Side right Equipment Used level 1 band (attached to wall ) Reps/Minutes 8 x2 Comments min discomfort noted Manual Therapy Treatment Soft Tissue Mobilization lats Mobilization Type Myofascial Release Intensity/Depth Moderate Body Position Sidelying Comments reduced tonicity noted pecs Mobilization Type Sustained Pressure,Trigger Point Release Intensity/Depth Moderate Body Position Supine Comments reduced tonicity noted. RTC Body Location infraspinatus and lats Mobilization Type Sustained Pressure,Trigger Point Release Intensity/Depth Moderate Body Position Supine Comments increased tonicity at supraspinatus noted. Joint Mobilizations R GHJ Direction post glide Grade III Body Position Supine Comments with passisve ER and IR. Full ER noted but pain with IR PT-OP-T Assessment and Plan Start: 08/10/20 08:06 Freq: Status: Active Protocol: Document 09/21/20 08:15 HH (Rec: 09/21/20 10:51 [id number]) Physical Therapy Assessment Goals Neck pain and headache Impairment pt has constant tension headache and neck pain Short Term Goal (STG) pt will have tension headahce on R side no more than 4 times a week to improve her overall focus and attention STG Duration 4 weeks Cuff Turner Machine Operator Goal (LTG) pt will have tension headahce on R side no more than 2 times a week to improve her overall work productivity and focus. LTG Duration 8 weeks return to activities Nursing Home Goal (LTG) pt will be able to participate kayaking, playing golf and other activitiies involves shoulder movements without difficulty LTG Duration 8 weeks ROM Impairment limited R shoulder ROM Short Term Goal (STG) pt will regain her R shoulder full AROM with pain no more than 2/10 STG Duration 4 weeks Nursing Home Goal (LTG) pt will have full R shoulder ROM without pain and neurological signs on her ulnar nerve. LTG Duration 8 weeks quickdash Impairment pt scores 84 on quickdash Short Term Goal (STG) Pt will improve overall her R shoulder mobility and strength to score <50 on quickdash STG Duration 4 weeks Cuff Turner Machine Operator Goal (LTG) Pt will improve overall her R shoulder mobility and strength to score <30 on quickdash, therefore, she can perform daily tasks like opening jars, holding weighted object without difficulty. LTG Duration 8 weeks Assessment Summary Assessment Pt continues to have symptoms of supraspinatus strain mostly from playing golf. She tolerates well with shoulder ER and IR today. Educated pt to ice and support her R arm to alleviate tension pain at supraspinatus tendon. Physical Therapy Plan Frequency and Duration Frequency of Treatment 2x/Week Duration of Treatment 8 weeks Plan of Care Start Date 08/09/20 Plan of Care End Date 10/09/20 Therapeutic Interventions Therapeutic Interventions Home Exercise Program,Joint Mobilizations,Manual Therapy, Neuromuscular Re-education, Patient/Caregiver Education, Self-Care/Home Management,Soft Tissue Mobilization,Taping, Therapeutic Activities, Therapeutic Exercises Modalities Biofeedback,Cold Pack/Ice Massage,Electric Stimulation, Hot Packs,Infrared Therapy, Iontophoresis,Paraffin Bath, Traction- Mechanical, Ultrasound Next Visit Focus/Plan Next Note Type Treatment Note Next Visit Plan manual @ bicep tendon, RTC followed by ROM ex manula @ suboccipitals, SCM followed by stretching at levator scap and R trap check scapula movements.
--- NOTE | 2020-09-23 09:06 | PT.OTN ---
Current Diagnoses Pain in right shoulder (09/23/20) Impingement syndrome of right shoulder (09/23/20) Physical Therapy Treatment Note PT-OP-A Visit Information Start: 08/10/20 08:06 Freq: Status: Active Protocol: Document 09/23/20 08:14 HH (Rec: 09/23/20 09:05 [id number]) Out-Patient Physical Therapy Visit Information Visit Information Visit Type Treatment Note Visit Start Time 08:20 Visit Stop Time 09:00 Total Visit Minutes 40 Visit Number 11 Number of OFFAL TRIMMER Visits 0 PT-OP-B Current Condition Start: 08/10/20 08:06 Freq: Status: Active Protocol: Document 08/10/20 10:00 HH (Rec: 08/10/20 10:40 HH [email or web address]) Current Condition History of Current Condition Onset Date Februray Current Complaints R shoulder pain, R neck pain History of Current Condition Lin is a 54 yo healthy female (L hand dominant) here for her new onset of R shoulder pain and chronic R neck pain since [facility] and five years ago. Symptoms started in [facility] after she moved from [place] to [place]. She denies any known injury but pain started as nagging discomfort but it has been getting worse. She also started having tingling and numbness down to her R pinky and her pain worse with any shoulder movements especially abduction. She has difficulty opening a jar, holding a coffee and sleeping on her R side. Pt consulted orthopedist Dr. Rodrigues and he believes pt has bursitis vs RTC tendinitis vs adhesive capsulitis. Current Functional Impairments (Reported) Functional Limitations- ADL's pain with opening jar/ holding a weighted object pain with donning her bra Functional Limitations- Recreation/ unable to kayak, play golf d/t Hobbies pain PT-OP-C Subjective Start: 08/10/20 08:06 Freq: Status: Active Protocol: Document 09/23/20 08:14 HH (Rec: 09/23/20 09:05 [id number]) OP-PT Subjective Patient Comments Patient Comments I was in agony yesterday and my pain goes all the way down to biceps. Patient Reported Progress Worse PT-OP-E Functional Tests Start: 08/10/20 08:06 Freq: Status: Active Protocol: Document 08/10/20 10:00 HH (Rec: 04/28/21 10:40 [email or web address]) Functional Tests Apley's Scratch Test Action 1- Left no pain Action 1- Right no pain Action 2- Left T2 Action 2- Right T2 with pain Action 3- Left T10 Action 3- Right T12 with pain PT-OP-F Manual Assessment Start: 08/10/20 08:06 Freq: Status: Active Protocol: Document 08/10/20 10:00 HH (Rec: 08/10/20 10:40 [email or web address]) Manual Assessments Soft Tissue Assessment Soft Tissue Mobility Assessment significant hypertonicity at proximal bicep and long head tendon tenderness to pressure at supraspinatus and infraspinatus hypertonicity at R subocciputal muscle group PT-OP-K Range of Motion Start: 08/10/20 08:06 Freq: Status: Active Protocol: Document 08/10/20 10:00 HH (Rec: 08/10/20 10:40 [email or web address]) Cervical Spine Range of Motion Cervical Spine Active Degrees Testing Position Sitting Rotation Left 85 Rotation Right 65 Comments pain with end range extension at T2-T4 pain with end range R rotation Shoulder Goniometric Range of Motion Shoulder Right Active Shoulder ROM WFL Yes Testing Position Standing Flexion 150 Abduction 105 External Rotation at 90 degrees 80 Abduction Internal Rotation 85 Left Active Shoulder ROM WFL Yes Testing Position Standing Flexion 150 Abduction 140 External Rotation at 90 degrees 95 Abduction Internal Rotation 85 PT-OP-L Special Tests Start: 08/10/20 08:06 Freq: Status: Active Protocol: Document 08/10/20 10:00 HH (Rec: 08/10/20 10:40 [email or web address]) Special Tests Shoulder Special Tests painful arc Test Results +ve R Comments abduction at 80 degrees Lift-Off Rotator Cuff Test Results +ve R Comments pain and weakness Empty Can Test Results -ve B External Rotation Lag Sign Test Results -ve B Comments no increase passive ER at R Drop Arm Rotator Cuff Test Results -ve B Comments pain to abduct AC Joint Compression Test Results -ve B Belly Press Test Results -ve B PT-OP-M Strength Start: 08/10/20 08:06 Freq: Status: Active Protocol: Document 08/10/20 10:00 HH (Rec: 08/10/20 10:40 [email or web address]) Shoulder Strength Shoulder Manual Muscle Testing Right Flexion 4 Good Extension 4 Good Abduction (C5) 3+ Fair+ Adduction 4+ Good+ External Rotation 4+ Good+ Internal Rotation 4+ Good+ Left Flexion 5 Normal Extension 5 Normal Abduction (C5) 5 Normal Adduction 5 Normal External Rotation 5 Normal Internal Rotation 5 Normal PT-OP-Q Treatments Start: 08/10/20 08:06 Freq: Status: Active Protocol: Document 09/23/20 08:14 (Rec: 09/23/20 09:05 [id number]) Therapeutic Exercises Supine Exercises scap pinch Side bilateral Reps/Minutes 10 x2 Comments no pain noted. Manual Therapy Treatment Soft Tissue Mobilization upper trap Mobilization Type Myofascial Release,Sustained Pressure,Trigger Point Release Intensity/Depth Moderate Body Position Sitting suboccipitals Mobilization Type Sustained Pressure,Trigger Point Release Intensity/Depth Moderate Body Position Sitting Comments + levator scap RTC Body Location infraspinatus and lats Mobilization Type Sustained Pressure,Trigger Point Release Intensity/Depth Moderate Body Position Supine Comments very sensitive at supraspinatus noted. Self-Care/Home Management Treatment Education Patient Education Pain Management Other Education educated pt to use ice massage with pillows support to elevate her R shoulder for pain management. PT-OP-T Assessment and Plan Start: 08/10/20 08:06 Freq: Status: Active Protocol: Document 09/23/20 08:14 (Rec: 09/23/20 09:05 [id number]) Physical Therapy Assessment Goals Neck pain and headache Impairment pt has constant tension headache and neck pain Short Term Goal (STG) pt will have tension headahce on R side no more than 4 times a week to improve her overall focus and attention STG Duration 4 weeks [facility] Goal (LTG) pt will have tension headahce on R side no more than 2 times a week to improve her overall work productivity and focus. LTG Duration 8 weeks return to activities [facility] Goal (LTG) pt will be able to participate kayaking, playing golf and other activitiies involves shoulder movements without difficulty LTG Duration 8 weeks ROM Impairment limited R shoulder ROM Short Term Goal (STG) pt will regain her R shoulder full AROM with pain no more than 2/10 STG Duration 4 weeks [employer] Drawing Operator Goal (LTG) pt will have full R shoulder ROM without pain and neurological signs on her ulnar nerve. LTG Duration 8 weeks quickdash Impairment pt scores 84 on quickdash Short Term Goal (STG) Pt will improve overall her R shoulder mobility and strength to score <50 on quickdash STG Duration 4 weeks [facility] Goal (LTG) Pt will improve overall her R shoulder mobility and strength to score <30 on quickdash, therefore, she can perform daily tasks like opening jars, holding weighted object without difficulty. LTG Duration 8 weeks Assessment Summary Assessment pt was in pain yesterday at supraspinatus tendon which also radiates down to lateral side of R shoulder. Spent time educated pt to use shoulder support and ice massage for pain management and ease off from stretching for 1 week to allow rest. Will follow up with pt in 2 weeks. Physical Therapy Plan Frequency and Duration Frequency of Treatment 2x/Week Duration of Treatment 8 weeks Plan of Care Start Date 08/09/20 Plan of Care End Date 10/09/20 Therapeutic Interventions Therapeutic Interventions Home Exercise Program,Joint Mobilizations,Manual Therapy, Neuromuscular Re-education, Patient/Caregiver Education, Self-Care/Home Management,Soft Tissue Mobilization,Taping, Therapeutic Activities, Therapeutic Exercises Modalities Biofeedback,Cold Pack/Ice Massage,Electric Stimulation, Hot Packs,Infrared Therapy, Iontophoresis,Paraffin Bath, Traction- Mechanical, Ultrasound Next Visit Focus/Plan Next Note Type Treatment Note Next Visit Plan manual @ bicep tendon, RTC followed by ROM ex manula @ suboccipitals, SCM followed by stretching at levator scap and R trap check scapula movements.
--- NOTE | 2020-10-26 09:04 | PT.OPPOC ---
Physical, Occupational & Speech Therapy At [facility] Current Diagnoses Pain in right shoulder (10/26/20) Impingement syndrome of right shoulder (10/26/20) Visit Care Team Role Provider Type Wilber Rodrigues MD Attending Provider Physician Referring Provider Specialty: Orthopedic Surgery Address: [address] [place] [address], [id number] Email: Plan Of Care PT-OP-T Assessment and Plan Start: 08/10/20 08:06 Freq: Status: Active Protocol: Document 10/26/20 08:16 (Rec: 10/26/20 09:04 [id number]) Physical Therapy Assessment Goals Neck pain and headache Impairment pt has constant tension headache and neck pain Short Term Goal (STG) pt will have tension headahce on R side no more than 4 times a week to improve her overall focus and attention STG Duration 4 weeks Vest Finisher Goal (LTG) 10/26 goal met pt does not have tension headache anymore LTG Duration 8 weeks return to activities Vest Finisher Goal (LTG) 10/26 pt has not engage in any golf and kayaking activities yet. LTG Duration 8 weeks ROM Impairment limited R shoulder ROM Short Term Goal (STG) pt will regain her R shoulder full AROM with pain no more than 2/10 STG Duration 4 weeks Care Home Goal (LTG) 10/26goal met pt has full R shoulder ROM without pain and neurological signs on her ulnar nerve. LTG Duration 8 weeks quickdash Impairment pt scores 84 on quickdash Short Term Goal (STG) Pt will improve overall her R shoulder mobility and strength to score <50 on quickdash STG Duration 4 weeks Vest Finisher Goal (LTG) Pt will improve overall her R shoulder mobility and strength to score <30 on quickdash, therefore, she can perform daily tasks like opening jars, holding weighted object without difficulty. LTG Duration 8 weeks Assessment Summary Assessment pt was last seen 09/23. She reports she got full ROM, full strength back but hasnt participated in golf/ kayaking activities. Upon reassessment , pt still has mild pain at end range ER. Recommended her to continue practice scap retraction and resisted ER for overall strengthening. Pt agrees to be DC from PT at this point. Physical Therapy Plan Frequency and Duration Frequency of Treatment 1 Plan of Care Start Date 10/26/20 Therapeutic Interventions Therapeutic Interventions Home Exercise Program,Joint Mobilizations,Manual Therapy, Neuromuscular Re-education, Patient/Caregiver Education, Self-Care/Home Management,Soft Tissue Mobilization,Taping, Therapeutic Activities, Therapeutic Exercises Modalities Biofeedback,Cold Pack/Ice Massage,Electric Stimulation, Hot Packs,Infrared Therapy, Iontophoresis,Paraffin Bath, Traction- Mechanical, Ultrasound Discharge Physical Therapy Discharge Reasons Patient Request Plan of Care Dates Plan of Care Start Date 10/26/20 Plan of Care End Date 10/09/20 Electronically Signed by: Otis Shaver PT 10/26/20 0904 Please Sign and Return: I have reviewed this Plan of Care and certify that the skilled therapy services above are required to meet the patient?s needs. Physician Signature Date Printed Name and Credentials Clinical Instructor Signature Printed Name and Credentials
--- NOTE | 2020-10-26 09:04 | PT.OPDS ---
Current Diagnoses Pain in right shoulder (10/26/20) Impingement syndrome of right shoulder (10/26/20) Visit Care Team Role Provider Type Wilber Rodrigues MD Attending Provider Physician Referring Provider Specialty: Orthopedic Surgery Address: [address] [place] [address], [place], [address] Email: [email or web address] Visit Number Visit Number 12 Discharge Summary PT-OP-B Current Condition Start: 08/10/20 08:06 Freq: Status: Active Protocol: Document 08/10/20 10:00 HH (Rec: 08/10/20 10:40 HH [email or web address]) Current Condition History of Current Condition Onset Date Februray Current Complaints R shoulder pain, R neck pain History of Current Condition Lin is a 54 yo healthy female (L hand dominant) here for her new onset of R shoulder pain and chronic R neck pain since [facility] and five years ago. Symptoms started in [facility] after she moved from [place] to [place]. She denies any known injury but pain started as nagging discomfort but it has been getting worse. She also started having tingling and numbness down to her R pinky and her pain worse with any shoulder movements especially abduction. She has difficulty opening a jar, holding a coffee and sleeping on her R side. Pt consulted orthopedist Dr. Rodrigues and he believes pt has bursitis vs RTC tendinitis vs adhesive capsulitis. Current Functional Impairments (Reported) Functional Limitations- ADL's pain with opening jar/ holding a weighted object pain with donning her bra Functional Limitations- Recreation/ unable to kayak, play golf d/t Hobbies pain PT-OP-C Subjective Start: 08/10/20 08:06 Freq: Status: Active Protocol: Document 10/26/20 08:16 HH (Rec: 10/26/20 09:04 HH [id number]) OP-PT Subjective Patient Comments Patient Comments Jacy been doing good so far and i dont have any pain so far. Patient Reported Progress Improving PT-OP-E Functional Tests Start: 08/10/20 08:06 Freq: Status: Active Protocol: Document 08/10/20 10:00 HH (Rec: 08/10/20 10:40 HH [email or web address]) Functional Tests Apley's Scratch Test Action 1- Left no pain Action 1- Right no pain Action 2- Left T2 Action 2- Right T2 with pain Action 3- Left T10 Action 3- Right T12 with pain PT-OP-F Manual Assessment Start: 08/10/20 08:06 Freq: Status: Active Protocol: Document 08/10/20 10:00 HH (Rec: 08/10/20 10:40 [email or web address]) Manual Assessments Soft Tissue Assessment Soft Tissue Mobility Assessment significant hypertonicity at proximal bicep and long head tendon tenderness to pressure at supraspinatus and infraspinatus hypertonicity at R subocciputal muscle group PT-OP-K Range of Motion Start: 08/10/20 08:06 Freq: Status: Active Protocol: Document 10/26/20 08:16 HH (Rec: 10/26/20 09:04 [id number]) Shoulder Goniometric Range of Motion Shoulder Right Active Shoulder ROM WFL Yes External Rotation at 90 degrees 85 Abduction PT-OP-L Special Tests Start: 08/10/20 08:06 Freq: Status: Active Protocol: Document 08/10/20 10:00 HH (Rec: 08/10/20 10:40 [email or web address]) Special Tests Shoulder Special Tests painful arc Test Results +ve R Comments abduction at 80 degrees Lift-Off Rotator Cuff Test Results +ve R Comments pain and weakness Empty Can Test Results -ve B External Rotation Lag Sign Test Results -ve B Comments no increase passive ER at R Drop Arm Rotator Cuff Test Results -ve B Comments pain to abduct AC Joint Compression Test Results -ve B Belly Press Test Results -ve B PT-OP-M Strength Start: 08/10/20 08:06 Freq: Status: Active Protocol: Document 10/26/20 08:16 HH (Rec: 10/26/20 09:04 [id number]) Shoulder Strength Shoulder Manual Muscle Testing Right Flexion 4+ Good+ Extension 5 Normal Abduction (C5) 4+ Good+ External Rotation 4+ Good+ PT-OP-T Assessment and Plan Start: 08/10/20 08:06 Freq: Status: Active Protocol: Document 10/26/20 08:16 HH (Rec: 10/26/20 09:04 [id number]) Physical Therapy Assessment Goals Neck pain and headache Impairment pt has constant tension headache and neck pain Short Term Goal (STG) pt will have tension headahce on R side no more than 4 times a week to improve her overall focus and attention STG Duration 4 weeks Line Tender Goal (LTG) 10/26 goal met pt does not have tension headache anymore LTG Duration 8 weeks return to activities Line Tender Goal (LTG) 10/26 pt has not engage in any golf and kayaking activities yet. LTG Duration 8 weeks ROM Impairment limited R shoulder ROM Short Term Goal (STG) pt will regain her R shoulder full AROM with pain no more than 2/10 STG Duration 4 weeks Line Tender Goal (LTG) 10/26goal met pt has full R shoulder ROM without pain and neurological signs on her ulnar nerve. LTG Duration 8 weeks quickdash Impairment pt scores 84 on quickdash Short Term Goal (STG) Pt will improve overall her R shoulder mobility and strength to score <50 on quickdash STG Duration 4 weeks Assisted Goal (LTG) Pt will improve overall her R shoulder mobility and strength to score <30 on quickdash, therefore, she can perform daily tasks like opening jars, holding weighted object without difficulty. LTG Duration 8 weeks Assessment Summary Assessment pt was last seen 09/23. She reports she got full ROM, full strength back but hasnt participated in golf/ kayaking activities. Upon reassessment , pt still has mild pain at end range ER. Recommended her to continue practice scap retraction and resisted ER for overall strengthening. Pt agrees to be DC from PT at this point. Physical Therapy Plan Frequency and Duration Frequency of Treatment 1 Plan of Care Start Date 10/26/20 Therapeutic Interventions Therapeutic Interventions Home Exercise Program,Joint Mobilizations,Manual Therapy, Neuromuscular Re-education, Patient/Caregiver Education, Self-Care/Home Management,Soft Tissue Mobilization,Taping, Therapeutic Activities, Therapeutic Exercises Modalities Biofeedback,Cold Pack/Ice Massage,Electric Stimulation, Hot Packs,Infrared Therapy, Iontophoresis,Paraffin Bath, Traction- Mechanical, Ultrasound Discharge Physical Therapy Discharge Reasons Patient Request
== END 2020-10-26 10:45 | disposition home or self-care (01) ==
LOC: PHYS 08:15
PROVIDERS: Referring Provider Orthopaedic Surgery; Visit Provider Orthopaedic Surgery
DX: M25.511 Pain in right shoulder (principal); M75.41 Impingement syndrome of right shoulder
CPT/HCPCS: 95851; 97110; 97140; 97161

== ENCOUNTER → 2020-12-14 13:06 | Outpatient (CLI) | payer OTHER, SELFPAY ==
[2020-12-14 14:42] LABS: Add Manual Diff / Slide Review NO; Basophils Absolute Auto 100 /uL (0-100); Basophils Percent Auto 1.3 % (0-2); Eosinophils Absolute Auto 300 /uL (0-450); Eosinophils Percent Auto 5.4 % (2-4); Hematocrit 39.6 % (36-46); Hemoglobin 13.7 g/dL (12.0-16.0); Lymphocytes Absolute Auto 1900 /uL (1100-4500); Lymphocytes Percent Auto 39.5 % (25-40); Mean Corpuscular HGB Conc 34.6 % (30-36); Mean Corpuscular Hemoglobin 32.1 PG (26-34); Mean Corpuscular Volume 92.8 fL (80-100); Monocytes Absolute Auto 400 /uL (0-900); Monocytes Percent Auto 8.4 % (3-14); Neutrophils Absolute Auto 2200 /uL (1500-7000); Neutrophils Percent Auto 45.4 % (50-75); Platelet Count 239 X10^3/uL (150-400); Red Blood Cell Count 4.27 X10^6/uL (4.0-5.2); Red Cell Distribution Width 12.8 % (11.6-14.8); White Blood Cell Count 4.9 X10^3/uL (4.5-11.0)
[2020-12-14 15:06] LABS: Alanine Aminotransferase 21 IU/L (<35); Albumin 4.3 g/dL (3.5-5.0); Albumin Globulin Ratio 1.4 (1.0-2.8); Alkaline Phosphatase 39 U/L (38-126); Aspartate Aminotransferase 33 IU/L (14-36); BUN Creatinine Ratio 24.4 (6-22); Bilirubin Total 0.5 mg/dL (0.2-1.3); Blood Urea Nitrogen 19 mg/dL (7-17); Calcium 9.5 mg/dL (8.4-10.2); Carbon Dioxide 31 mmol/L (22-32); Chloride 103 mmol/L (98-107); Estimated Glomerular Filt Rate > 60.0 mL/min (>60); Glucose 92 mg/dL (70-100); Potassium 4.4 mmol/L (3.4-5.1); Sodium 138 mmol/L (137-145); Total Protein 7.3 g/dL (6.3-8.2)
[2020-12-14 15:10] LABS: HEMOLYSIS 83 (0-50)
[2020-12-16 19:24] LABS: ANA Screen, IFA Negative (.)
== END ==
PROVIDERS: PCP Nurse Practitioner Family; Referring Provider Dermatology; Visit Provider Dermatology
DX: L81.4 Other melanin hyperpigmentation (principal); L57.8 Other skin changes due to chronic exposure to nonionizing radiation; L29.8 Other pruritus
CPT/HCPCS: 36415; 80053; 85025; 86038

== ENCOUNTER → 2021-02-08 14:43 | Outpatient (CLI) | payer OTHER, SELFPAY ==
[2021-02-08 16:07] LABS: COVID19 -Nasal RAPID Negative (Negative)
[2021-06-09 15:14] LABS: Fecal Immunochemical Test Negative (Negative)
== END ==
PROVIDERS: Family Medicine; PCP Nurse Practitioner Family; Visit Provider Nurse Practitioner Family
DX: Z20.822 Contact with and (suspected) exposure to COVID-19 (principal)
CPT/HCPCS: 82274; 87635

== ENCOUNTER → 2021-02-17 09:28 | Outpatient (CLI) | payer OTHER, SELFPAY ==
[2021-02-17] MEDS: COVID-19 VACC #3, MRNA(MOD) 50 MCG/0.25 ML VIAL IM (09:34)
== END ==
PROVIDERS: PCP Nurse Practitioner Family; Visit Provider Internal Medicine
DX: Z23 Encounter for immunization (principal)
CPT/HCPCS: 0013A; 91301

== ENCOUNTER → 2021-03-02 13:36 | Outpatient (CLI) | payer OTHER, SELFPAY | PROVIDERS: PCP Nurse Practitioner Family; Referring Provider Internal Medicine; Visit Provider Internal Medicine | DX: Z23 Encounter for immunization (principal) | CPT/HCPCS: 90471; 90686 ==

== ENCOUNTER → 2021-11-02 09:51 | Outpatient (CLI) | payer OTHER, SELFPAY ==
[2021-11-02 10:28] LABS: Add Manual Diff / Slide Review NO; Basophils Absolute Auto 0 /uL (0-100); Basophils Percent Auto 0.8 % (0-2); Eosinophils Absolute Auto 100 /uL (0-450); Eosinophils Percent Auto 1.2 % (2-4); Hematocrit 41.4 % (36-46); Hemoglobin 14.4 g/dL (12.0-16.0); Lymphocytes Absolute Auto 1700 /uL (1100-4500); Lymphocytes Percent Auto 39.3 % (25-40); Mean Corpuscular HGB Conc 34.7 % (30-36); Mean Corpuscular Hemoglobin 31.2 PG (26-34); Mean Corpuscular Volume 90.1 fL (80-100); Monocytes Absolute Auto 300 /uL (0-900); Neutrophils Absolute Auto 2200 /uL (1500-7000); Neutrophils Percent Auto 52.7 % (50-75); Platelet Count 275 X10^3/uL (150-400); Red Cell Distribution Width 13.1 % (11.6-14.8); White Blood Cell Count 4.3 X10^3/uL (4.5-11.0)
[2021-11-02 10:49] LABS: Erythrocyte Sedimentation Rate 12 MM/HR (0-20)
[2021-11-02 10:50] LABS: C-Reactive Protein Quant 0.8 mg/dL (<1.0); Cholesterol 249 mg/dL (140-199); HDL Cholesterol 51 mg/dL (40-60); LDL Cholesterol Calculated 173 mg/dL (<100); Triglycerides 124 mg/dL (35-150)
[2021-11-02 10:58] LABS: Rheumatoid Factor < 8.6 IU/mL (<12.0)
[2021-11-07 19:02] LABS: ANA Screen, IFA Positive (.)
[2021-11-07 21:18] LABS: CCP Antibodies IgG/IgA 6 units (0-19)
== END ==
PROVIDERS: PCP Family Medicine; Referring Provider Family Medicine; Visit Provider Family Medicine
DX: M25.50 Pain in unspecified joint (principal); E78.2 Mixed hyperlipidemia
CPT/HCPCS: 36415; 80061; 85025; 85651; 86038; 86140; 86200; 86430

== ENCOUNTER → 2021-11-13 11:59 | Outpatient (CLI) | payer OTHER, SELFPAY ==
--- NOTE | 2021-11-13 12:02 | DI.RAD.S_ITS ---
PROCEDURE: XR LUMBAR SPINE 2-3V INDICATIONS: low back pain TECHNIQUE: 3 views of the lumbar spine were acquired. COMPARISON: None. FINDINGS: Bones: 5 [id number] vertebrae are present. There is normal bony alignment. No vertebral body compression fractures. No suspicious bony lesions. There is mild intervertebral disc space narrowing and endplate sclerosis at L5-S1. Soft tissues: Overlying bowel gas pattern is normal. No suspicious soft tissue calcifications. IMPRESSION: No compression deformities. Mild degenerative change. Dictated by: Shameka Marsh M.D. on 11/13/2021 at 15:37 Approved by: Shameka Marsh M.D. on 11/13/2021 at 15:38
--- NOTE | 2021-11-13 12:02 | DI.RAD.S_ITS ---
PROCEDURE: XR HIP W PEL IF DONE LT 2V INDICATIONS: left hip pain TECHNIQUE: AP pelvis with lateral view(s) of the left hip(s). COMPARISON: None. FINDINGS: Bones: No fractures or dislocations. Pelvic ring appears intact. No suspicious bony lesions. Soft tissues: The visualized bowel gas pattern is normal. No suspicious soft tissue calcifications. IMPRESSION: No radiographic abnormalities. Dictated by: Shameka Marsh M.D. on 11/13/2021 at 15:38 Approved by: Shameka Marsh M.D. on 11/13/2021 at 15:38
== END ==
PROVIDERS: PCP Family Medicine; Referring Provider Family Medicine; Visit Provider Family Medicine
DX: M25.552 Pain in left hip (principal); M54.50 Low back pain, unspecified
CPT/HCPCS: 72100; 73502

== ENCOUNTER → 2022-01-15 16:27 | Outpatient (CLI) | payer OTHER, SELFPAY ==
--- NOTE | 2022-01-15 16:29 | DI.MG.S_ITS ---
BILATERAL DIGITAL SCREENING MAMMOGRAM 3D/2D WITH CAD: 01/15/2022 CLINICAL: Routine screening. Family history of breast cancer. Comparison is made to exams dated: 10/12/2020 mammogram - [facility], 12/23/2019 mammogram, and 04/30/2018 mammogram - outside location. Both breasts are heterogeneously dense, which may obscure small masses (category c / 51-75% glandular tissue). Current study was also evaluated with a Computer Aided Detection (CAD) system. No significant masses, calcifications, or other findings are seen in either breast. There has been no significant interval change. IMPRESSION: NEGATIVE There is no mammographic evidence of malignancy. A 1 year screening mammogram is recommended. Based on Tyrer-Cuzick model (a risk assessment model), the patient's lifetime risk is 34.1% and her 10 year risk is 11.4%. If a patient has an elevated risk, a more comprehensive evaluation should be considered and/or a referral to a genetic counselor. The [place], [employer], and NCCN Guidelines advise the consideration of Breast MRI as an adjunct to screening mammography in patients whose Lifetime risk to develop breast cancer is 20% or higher. This exam was interpreted at Station ID: [id number]. NOTE: For mammograms, a report in lay terms will be sent to the patient. Approximately 15% of breast malignancies will not be visualized mammographically. In the management of a palpable breast mass, a negative mammogram must not discourage biopsy of a clinically suspicious lesion. Electronically Signed By: Sachin evans/rafaela:01/16/2022 13:16:04 letter sent: Normal Exam ACR BI-RADS Category 1: Negative [id number]
== END ==
PROVIDERS: PCP Family Medicine; Referring Provider Family Medicine; Visit Provider Family Medicine
DX: Z12.31 Encounter for screening mammogram for malignant neoplasm of breast (principal); Z80.3 Family history of malignant neoplasm of breast
CPT/HCPCS: 77063; 77067

== ENCOUNTER → 2022-02-13 12:11 | Outpatient (CLI) | payer OTHER, SELFPAY ==
--- NOTE | 2022-02-13 12:13 | DI.MRI.S_ITS ---
BREAST MRI OF BOTH BREASTS: 02/13/2022 CLINICAL: High risk. Family history breast cancer. PROCEDURE: MR BREAST BI WO/W CON INDICATIONS: due to elevated risk based on Bobby-Cuzick model TECHNIQUE: The patient was placed prone in a dedicated breast imaging coil. Precontrast axial STIR and 3D FLASH without fat saturation sequences were obtained. Both before and after bolus injection of contrast, sequential 1-minute axial 3D FLASH with fat saturation sequences for 3 time points, with subtraction images and maximum intensity projections (MIP's) generated. Delayed sagittal FLASH images with fat saturation were also obtained. Computer-aided detection, including computer algorithm analysis of MRI image data for lesion detection and characterization, pharmacokinetic analysis, with further physician review for interpretation, was performed. COMPARISON: [facility], , MM SCREENING MAMMO BI, 01/15/2022, 16:40. [facility], , US BREAST RT LIMITED, 10/12/2020, 9:50. FINDINGS: Image quality: Excellent. There is minimal background parenchymal enhancement. Right breast: Focal T1 hyperintensity is noted within a solitary nondilated duct in the right breast at 9:00 o'clock (series 4/image 49). No suspicious enhancement or mass lesions within the right breast. Left breast: T1 hyperintense nondilated ducts are noted within the left breast at 3:00 o'clock (series 5/image 55). T1 hyperintensity is noted within a dilated duct within the lower outer quadrant of the left breast (series 5/image 46 and series 18/image 105). No suspicious enhancing mass lesions within the left breast. Miscellaneous: Limited visualization of the mediastinum, lungs, heart, and upper abdomen are unremarkable. No axillary adenopathy. IMPRESSION: INCOMPLETE: NEEDS ADDITIONAL IMAGING EVALUATION 1. Bilateral nondilated ducts with T1 hyperintense signal suggesting the presence of proteinaceous fluid. 2. Solitary dilated duct within the lower outer quadrant of the left breast with hyperintense signal suggesting the presence of proteinaceous fluid. Given the dilated appearance of this duct, precautionary second-look ultrasound is recommended in the subareolar region to ensure there is no intraductal obstructing lesion. Of note, there is no suspicious enhancement in the subareolar region. Electronically Signed By: Shameka rock/:02/13/2022 14:00:36 ACR BI-RADS Category 0: Incomplete 3340F
== END ==
PROVIDERS: PCP Family Medicine; Referring Provider Family Medicine; Visit Provider Family Medicine
DX: R92.2 Inconclusive mammogram (principal); N60.42 Mammary duct ectasia of left breast; Z80.3 Family history of malignant neoplasm of breast
CPT/HCPCS: 77049; A9579

== ENCOUNTER → 2022-02-16 15:37 | Outpatient (CLI) | payer OTHER, SELFPAY ==
--- NOTE | 2022-02-16 15:38 | DI.US.S_ITS ---
LIMITED ULTRASOUND OF LEFT BREAST: 02/16/2022 CLINICAL: Follow-up MRI. Patient returns today to evaluate a density in the right breast. Comparison is made to exams dated: 02/13/2022 breast MRI, 01/15/2022 mammogram, 10/12/2020 mammogram - [facility], and 12/23/2019 mammogram - [facility]. Color flow ultrasound of the left breast retroareolar was performed. Simpson scale images of the real-time examination were reviewed. No significant abnormalities were seen sonographically in the left breast. Normal appearing ducts are seen in the retroareolar region of the left breast 3 o'clock position. IMPRESSION: BENIGN There is no sonographic evidence of malignancy. Return to annual mammogram screening schedule is recommended. Future imaging is recommended as follows: 01/16/2023 screening mammogram. This exam was interpreted at Station ID: [id number]. Electronically Signed By: Maik gunter/rafaela:02/16/2022 15:56:58 letter sent: Normal Exam Ultrasound BI-RADS: 2 Benign
== END ==
PROVIDERS: PCP Family Medicine; Referring Provider Family Medicine; Visit Provider Family Medicine
DX: R92.8 Other abnormal and inconclusive findings on diagnostic imaging of breast (principal)
CPT/HCPCS: 76642

== ENCOUNTER → 2022-05-07 07:39 | Outpatient (CLI) | payer OTHER, SELFPAY ==
--- NOTE | 2022-05-07 07:39 | DI.RAD.S_ITS ---
PROCEDURE: XR LUMBAR SPINE MIN 4V INDICATIONS: ACUTE LOW BACK PAIN TECHNIQUE: 5 views of the lumbar spine were acquired, including bilateral oblique views. COMPARISON: [facility], , XR LUMBAR SPINE 2-3V, 11/13/2021, 12:22. FINDINGS: Bones: 5 nonrib-bearing vertebrae are present. There is normal bony alignment. L5 facet joint hypertrophy. Tiny vertebral body osteophytes. No vertebral body compression fractures. No suspicious bony lesions. Soft tissues: Overlying bowel gas pattern is normal. No suspicious soft tissue calcifications. Oblique images: No pars defects. IMPRESSION: Mild degenerative changes in the lumbar spine. No compression fracture. Dictated by: Austin Tapia M.D. on 05/07/2022 at 9:04 Approved by: Austin Tapia M.D. on 05/07/2022 at 9:07
== END ==
PROVIDERS: PCP Family Medicine; Referring Provider Physical Medicine & Rehabilitation; Visit Provider Physical Medicine & Rehabilitation
DX: M47.26 Other spondylosis with radiculopathy, lumbar region
CPT/HCPCS: 72110

== ENCOUNTER → 2022-10-29 12:29 | Outpatient (CLI) | payer OTHER, SELFPAY ==
--- NOTE | 2022-10-29 12:33 | DI.RAD.S_ITS ---
PROCEDURE: XR ANKLE RT MIN 3V INDICATIONS: Right ankle pain TECHNIQUE: 3 views of the ankle were acquired. COMPARISON: None. FINDINGS: Bones: No fractures or dislocations. Ankle mortise is normally aligned. No suspicious bony lesions. Soft tissues: No tibiotalar joint effusion. Achilles tendon appears normal. Medial malleolar soft tissue swelling. IMPRESSION: Medial malleolar soft tissue swelling; otherwise no acute fracture. No osseous lesion. If clinical suspicion and/orsymptoms persist, further assessment with repeat plainfilms, or advanced imaging (e.g., CT, MRI, or bone scan) may be helpful for further assessment. Dictated by: Eduar LINTON Interpreted: Zari Dunaway MD on 10/29/2022 at 14:32 Transcribed by: KRISH on 10/29/2022 at 14:50 Approved by: Zari Dunaway M.D. on 10/29/2022 at 17:19
== END ==
PROVIDERS: PCP Family Medicine; Referring Provider Nurse Practitioner Family; Visit Provider Nurse Practitioner Family
DX: M25.571 Pain in right ankle and joints of right foot (principal); M79.89 Other specified soft tissue disorders
CPT/HCPCS: 73610

== ENCOUNTER → 2022-12-10 13:44 | Outpatient (CLI) | payer OTHER, SELFPAY | PROVIDERS: PCP Family Medicine; Referring Provider Dermatology; Visit Provider Surgery | DX: T81.31XA Disruption of external operation (surgical) wound, not elsewhere classified, initial encounter (principal); S21.201A Unspecified open wound of right back wall of thorax without penetration into thoracic cavity, initial encounter | CPT/HCPCS: 11042; 87070; 87075; 87205; 99203; 99213 ==

== ENCOUNTER → 2022-12-20 09:06 | Outpatient (CLI) | payer OTHER, SELFPAY | PROVIDERS: PCP Family Medicine; Referring Provider Dermatology; Visit Provider Surgery | DX: T81.89XA Other complications of procedures, not elsewhere classified, initial encounter (principal); S21.201A Unspecified open wound of right back wall of thorax without penetration into thoracic cavity, initial encounter | CPT/HCPCS: 99213 ==

== ENCOUNTER → 2023-01-07 16:00 | Outpatient (CLI) | payer OTHER, SELFPAY ==
--- NOTE | 2023-01-07 16:01 | DI.MRI.S_ITS ---
PROCEDURE: MR LUMBAR SPINE WO CON INDICATIONS: Right L5 radiculopathy TECHNIQUE: Noncontrast sagittal T1 spin echo and T2 fast echo, sagittal STIR, and T2 fast spin echo through the lumbar spine. In cases with scoliosis, additional coronal T2 fast spin echo may be performed. COMPARISON: None. FINDINGS: Image quality: Diagnostic Alignment and Curvature: There is minimal retrolisthesis at L4-L5. There is mild retrolisthesis seen at L5-S1. Bone Marrow: Marrow is of normal overall signal. No acute vertebral body compression fractures. Spinal Cord: Conus medullaris terminates at the L1 level. Visualized cord demonstrates normal signal and size. Paraspinous Soft Tissues: No paravertebral masses. T12-L1: Normal appearance. L1-L2: Normal appearance. L2-L3: Normal appearance. L3-L4: The disc height and disk signal are relatively well-preserved. Mild generalized disc bulge is seen. Mild facet joint hypertrophy is seen. Mild bilateral neural foraminal narrowing is seen. Mild central canal narrowing is seen. L4-L5: The disc height is well-preserved. Loss of disc signal is seen at this level. Moderate generalized disc bulge is seen. There is a superimposed central disc protrusion. Mild facet joint hypertrophy is seen. Moderate bilateral neural foraminal narrowing is seen. Intra canal narrowing is seen. L5-S1: Moderate loss of disc height is seen. Loss of disc signal is seen. Moderate disc bulge is seen, with a central disc protrusion. Moderate facet joint hypertrophy is seen. There is moderate to severe bilateral neural foraminal narrowing seen, with an associated a degree of compression seen upon the exiting nerve roots. Mild central canal narrowing is seen. IMPRESSION: Focal L5-S1 degenerative change is seen. Milder degenerative changes are seen elsewhere. Dictated by: Oj Charles M.D. on 01/07/2023 at 17:09 Approved by: Oj Charles M.D. on 01/07/2023 at 17:11
== END ==
PROVIDERS: PCP Family Medicine; Referring Provider Physical Medicine & Rehabilitation; Visit Provider Physical Medicine & Rehabilitation
DX: M47.27 Other spondylosis with radiculopathy, lumbosacral region (principal); M47.26 Other spondylosis with radiculopathy, lumbar region
CPT/HCPCS: 72148

== ENCOUNTER → 2023-02-22 15:05 | Outpatient (CLI) | payer OTHER, SELFPAY | PROVIDERS: PCP Family Medicine; Referring Provider Family Medicine; Visit Provider Family Medicine | DX: Z23 Encounter for immunization (principal) | CPT/HCPCS: 90471; 90686 ==

== ENCOUNTER 2023-04-19 06:29 | Day surgery (SDC) | payer OTHER, SELFPAY ==
[2023-04-19 06:47] VITALS: BP 135/78; PULSE 56; RESP 16; TEMP 36.2; O2SAT 98; BMI 29.6
[2023-04-19] MEDS: LACTATED RINGERS 1,000 ML 42 ML IV (07:10)
--- NOTE | 2023-04-19 08:00 | PM.HP.1 ---
History of Present Illness History of Present Illness Date Patient Seen: 04/19/23 Time Patient Seen: 08:00 Chief complaint: SDC Narrative: blood in stool, colon cancer screening, no family history of colon cancer. [facility] Medical History Facet arthropathy, lumbar Sacral dysfunction Lumbar radiculopathy, acute Sleep apnea Pulmonary hypertension (~2018) Vaginal atrophy Mixed hyperlipidemia (09/2020) Insomnia Dyshidrotic eczema (09/2020) History of melanoma (~2006) Hot flashes due to menopause (2018) Essential hypertension (~2018) Depression (~2006) Surgical History Anesthesia History of section History of surgery (~2006) Family History Father Cancer Diabetes mellitus Hypertension Hyperlipidemia Mother Cancer History of heart disease Hyperlipidemia Hypertension Mental health problem Brother Accident Social History marital status: number of children: 2 household members: spouse lives independently: Yes occupational status: employed Smoking Status: Never smoker second hand exposure: Yes alcohol intake: current substance use type: does not use Meds Home Medications and Allergies Home Medications Medication Instructions Recorded Confirmed Type dupilumab 300 mg/2 mL subcutaneous 300 mg SUBCUT Q4W 05/07/22 04/19/23 History pen injector (Dupixent) hydrochlorothiazide 12.5 mg tablet 12.5 mg PO DAILY #90 tabs 03/12/23 04/19/23 Rx lisinopril 40 mg tablet 40 mg PO DAILY #90 tabs 03/12/23 04/19/23 Rx sertraline 100 mg tablet See Rx Instructions .Route 04/01/23 04/19/23 Rx .COMPLEX #90 tabs trazodone 100 mg tablet 100 mg PO ONCE PM #90 tabs 04/04/23 04/19/23 Rx Allergies Allergy/AdvReac Type Severity Reaction Status Date / Time oxycodone Allergy Severe rash Verified 04/19/23 06:41 hydrocodone [From Vicodin] Allergy Rash Verified 04/19/23 06:41 Review of Systems Review of Systems ROS: Yes All systems reviewed with the patient and are negative except as otherwise documented Exam Vital Signs (past 8 hours): - 04/19/23 06:47 Temperature 97.2 F L Pulse Rate 56 L Respiratory Rate 16 Blood Pressure 135/78 Pulse Oximetry 98 Oxygen Delivery Method Room Air Oxygen Delivery Method Room Air Const General: cooperative and healthy appearing [facility] Head: normal to inspection, normocephalic and atraumatic Eyes General: appearance normal, both eyes and all related structures Neck Neck: trachea midline Resp Effort & Inspection: normal respiratory effort and able to speak in complete sentences Cardio Rate: regular rate Rhythm: regular rhythm Skin General: no rashes or lesions noted and elasticity normal Neuro General: patient alert, patient awake and patient oriented x3 Extrem General: normal to inspection Psych Appearance: grossly normal Mental Status: mental status grossly normal Affect: normal affect Assessment & Plan Assessment & Plan narrative: colon cancer screening and blood in stool Time Spent With Patient Time with patient: less than 30 minutes
--- NOTE | 2023-04-19 08:32 | PM.OP.COLON ---
Operative Date/Time/Diagnoses Date of procedure: 04/19/23 Time of procedure: 08:33 Pre-op diagnosis: Colon cancer screening, blood in stool Post-op diagnosis: same Procedure & Clinicians Study performed: Colonoscopy with hemorrhoid banding using anesthesia Same procedure as scheduled: Yes Indications: Colon cancer screening, blood in stool Surgeon: Melinda Maurer Procedure Notes Procedure in detail: Preop diagnosis: Colon cancer screening, blood in stool Postop diagnosis: Same Operative procedure: Colonoscopy with anesthesia along with hemorrhoid banding x1 Surgeon: Olinda Maurer MD Findings: Normal colonoscopy. No polyps, no diverticulosis. Grade 2 internal hemorrhoids, 1 prominent external hemorrhoid tag. Fibrosis at the 6 o'clock position indicating prior fissure. No open fissure at this time Procedure: Patient placed in lateral position. Rectal exam performed showing normal tone. Fibrosis point of old fissure at the 6 o'clock position. No masses. Scope was inserted into the rectum and advanced to ileocecal valve with minimal difficulty. Insufflation extraction of the scope including retroflex in the rectum and the above findings. I then placed an anoscope into the rectum targeting the grade 2 hemorrhoids in the posterolateral ?left? for a single hemorrhoidal band. Impression: Normal colonoscopy, no polyps, no diverticulosis. Grade 2 internal hemorrhoid, fibrosis at the anal verge suggestive of previous fissure. External hemorrhoidal tag Plan: Repeat colonoscopy in 10 years unless otherwise indicated by change in clinical condition. Follow up with me for discussion of anal fissure treatment if the hemorrhoid banding does not relieve her of the symptoms. Findings: internal hemorrhoids and other findings (Healed anal fissure 6 o'clock position) Specimen(s): none sent Complications: none Post-procedure Recommendations: Colonoscopy in 10 years Follow up: as needed Disposition: PACU
[2023-04-19 08:35] VITALS: BP 94/48; PULSE 63; RESP 17; TEMP 36.6; O2SAT 95
[2023-04-19 08:41] VITALS: BP 114/52; PULSE 61; RESP 12; O2SAT 95
[2023-04-19 08:45] VITALS: BP 112/79; PULSE 56; RESP 18; O2SAT 95
[2023-04-19 08:50] VITALS: BP 111/63; PULSE 54; RESP 16; TEMP 36.7; O2SAT 97
== END 2023-04-19 09:05 | disposition home or self-care (01) ==
PROVIDERS: PCP Family Medicine; Referring Provider Surgery; Visit Provider Surgery
PROC: 0DJD8ZZ Inspection of Lower Intestinal Tract, Via Natural or Artificial Opening Endoscopic (ICD-10-PCS; CPT 45378; principal; 2023-04-19 07:45)
DX: K92.1 Melena (principal); K64.1 Second degree hemorrhoids
CPT/HCPCS: 45378; 46221; J2405; J2704

== ENCOUNTER → 2023-07-18 10:31 | Outpatient (CLI) | payer OTHER, SELFPAY ==
[2023-07-18 11:13] LABS: Alanine Aminotransferase 45 IU/L (<35); Albumin 4.1 g/dL (3.5-5.0); Albumin Globulin Ratio 1.4 (1.0-2.8); Alkaline Phosphatase 46 U/L (38-126); Aspartate Aminotransferase 38 IU/L (14-36); BUN Creatinine Ratio 20.7 (6-22); Bilirubin Total 0.4 mg/dL (0.2-1.3); Blood Urea Nitrogen 18 mg/dL (7-17); Calcium 9.3 mg/dL (8.4-10.2); Carbon Dioxide 30 mmol/L (22-32); Chloride 106 mmol/L (98-107); Cholesterol 251 mg/dL (140-199); Estimated Glomerular Filt Rate > 60 mL/min (>60); Glucose 101 mg/dL (70-100); HDL Cholesterol 52 mg/dL (40-60); HEMOLYSIS < 15 (0-50); Hemoglobin A1C% w Est Avg Glu 5.4 % (4.0-6.0); LDL Cholesterol Calculated 168 mg/dL (<100); Sodium 140 mmol/L (137-145); Total Protein 7.1 g/dL (6.3-8.2); Triglycerides 157 mg/dL (35-150)
[2023-07-18 12:10] LABS: Creatinine Urine Random 121.5 mg/dL
[2023-07-18 12:14] LABS: Microalbumi Creatinin Ratio Ur 9.8 ug/mg CR (<30); Microalbumin Urine Random 1.2 mg/dL (0-1.6)
== END ==
PROVIDERS: PCP Family Medicine; Referring Provider Family Medicine; Visit Provider Family Medicine
DX: I10 Essential (primary) hypertension (principal); E66.9 Obesity, unspecified
CPT/HCPCS: 36415; 80053; 80061; 82043; 82570; 83036

== ENCOUNTER → 2023-10-22 08:16 | Outpatient (CLI) | payer OTHER, SELFPAY ==
--- NOTE | 2023-10-22 08:17 | DI.MG.S_ITS ---
BILATERAL DIGITAL SCREENING MAMMOGRAM 3D/2D WITH CAD: 10/22/2023 CLINICAL: Routine screening. Family history of breast cancer. Comparison is made to exams dated: 01/15/2022 mammogram, 10/12/2020 mammogram - [facility], and 12/23/2019 mammogram - outside location. Both breasts are heterogeneously dense, which may obscure small masses (category c / 51-75% glandular tissue). Current study was also evaluated with a Computer Aided Detection (CAD) system. No significant masses, calcifications, or other findings are seen in either breast. There has been no significant interval change. IMPRESSION: NEGATIVE There is no mammographic evidence of malignancy. A 1 year screening mammogram is recommended. Based on Tyrer-Cuzick model (a risk assessment model), the patient's lifetime risk is 33.4% and her 10 year risk is 12.6%. If a patient has an elevated risk, a more comprehensive evaluation should be considered and/or a referral to a genetic counselor. The [employer], [employer], and NCCN Guidelines advise the consideration of Breast MRI as an adjunct to screening mammography in patients whose Lifetime risk to develop breast cancer is 20% or higher. This exam was interpreted at Station ID: [id number]. NOTE: For mammograms, a report in lay terms will be sent to the patient. Approximately 15% of breast malignancies will not be visualized mammographically. In the management of a palpable breast mass, a negative mammogram must not discourage biopsy of a clinically suspicious lesion. Electronically Signed By: Ranjit rossi/rafaela:10/22/2023 12:02:18 letter sent: Normal Exam ACR BI-RADS Category 1: Negative [id number]
== END ==
PROVIDERS: PCP Family Medicine; Referring Provider Family Medicine; Visit Provider Family Medicine
DX: Z12.31 Encounter for screening mammogram for malignant neoplasm of breast (principal); Z80.3 Family history of malignant neoplasm of breast; R92.333 Mammographic heterogeneous density, bilateral breasts
CPT/HCPCS: 77063; 77067

== ENCOUNTER → 2024-02-07 | Outpatient (CLI) | payer OTHER, SELFPAY | PROVIDERS: PCP Family Medicine; Referring Provider Internal Medicine; Visit Provider Internal Medicine | DX: Z23 Encounter for immunization (principal) | CPT/HCPCS: 90471; 90656 ==